=== PATIENT | female | born 1980 | race Caucasian/White ===

== ENCOUNTER 2017-11-18 07:35 | Emergency (ER) | payer OTHER ==
[~2017-11-18] VITALS: Ht 165.1 cm; Wt 127.0 kg
[~2017-11-18 07:35] MED LIST: ACYC800 PO; ALBU90OI INH; AMOX500 PO; AMOX875 PO; CLAR250 PO; DIAZ5 PO; ERYT.5TO OS; ERYT333ERA PO; FASTIN; FEXO180; GENT.3OPSA OD; GUAI600T33 PO; HYDACE10B PO; HYDACE5 PO; HYDACE5325 PO; HYDGUAL120 PO; LISI20; MEDR150I; METF500 PO; NAPR500 PO; NITR100 PO; PSEU120ER; Phentermine HCl30 MG; [UNRECOGNIZED DRUG - OTHER]
[2017-11-18 09:08] LABS: Anion Gap 11 mmol/L (6-16); Blood Urea Nitrogen 13 mg/dL (8-24); CO2, Blood 23 mmol/L (21-32); Calcium, Blood 8.5 mg/dL (8.5-10.1); Chloride, Blood 106 mmol/L (98-108); Creatinine, Blood 0.87 mg/dL (0.40-1.00); Glomerular Filtration Rate >60 (60-); Glucose, Blood 117 mg/dL (70-99); Potassium, Blood 3.6 mmol/L (3.5-5.5); Sodium, Blood 140 mmol/L (136-145); Troponin I <0.015 ng/mL (0.000-0.040)
[2017-11-18 09:17] LABS: BASOPHILS ABSOLUTE AUTO 0.06 K/mm3 (0.00-0.23); BASOPHILS PERCENT AUTO 1 % (0-2); EOSINOPHILS ABSOLUTE AUTO 0.11 K/mm3 (0.00-0.68); EOSINOPHILS PERCENT AUTO 1 % (0-6); Hematocrit 41.8 % (33.0-51.0); Hemoglobin 14.3 g/dL (11.5-16.0); IMMATURE GRAN ABSOLUTE AUTO 0.03 K/mm3 (0.00-0.10); IMMATURE GRAN PERCENT AUTO 0 % (0-1); LYMPHOCYTES ABSOLUTE AUTO 2.71 K/mm3 (0.84-5.20); LYMPHOCYTES PERCENT AUTO 27 % (21-46); MONOCYTES ABSOLUTE AUTO 0.62 K/mm3 (0.16-1.47); MONOCYTES PERCENT AUTO 6 % (4-13); Mean Corpuscular HGB 29.5 pg (26.0-34.0); Mean Corpuscular HGB Conc 34.2 g/dL (31.5-36.5); Mean Corpuscular Volume 86 fL (80-100); Mean Platelet Volume 9.4 fL (9.1-12.4); NEUTROPHILS ABSOLUTE AUTO 6.36 K/mm3 (1.96-9.15); NEUTROPHILS PERCENT AUTO 64 % (41-73); Platelet Count 312 K/mm3 (150-400); RDW Coefficient Variation 12.5 % (11.7-14.2); Red Blood Cell Count 4.84 M/mm3 (3.80-5.20); White Blood Cell Count 9.89 K/mm3 (4.00-11.30)
== END 2017-11-18 10:06 | disposition home or self-care (01) ==
LOC: ER 07:35
PROVIDERS: Emergency Medicine
DX: R07.89 Other chest pain (principal); E11.9 Type 2 diabetes mellitus without complications; Z87.891 Personal history of nicotine dependence; Z91.09 Other allergy status, other than to drugs and biological substances; Z79.84 Long term (current) use of oral hypoglycemic drugs
CPT/HCPCS: 36415; 80048; 81000; 81025; 84484; 85025; 93005; 93010; 99284

== ENCOUNTER → 2020-07-10 | Outpatient (CLI) | payer OTHER ==
[~2020-07-10] MED LIST changes: +BLOOD PRESSURE; +Depo-Prove150 MG/11 IM; +IBUP600 PO; +Norco 5-325 Ta1 EACH PO
[2020-07-10 16:45] LABS: Body Fluid Crystals NEG (NEGATIVE)
== END ==
LOC: LAB 15:59 → LAB SHORT 15:59
PROVIDERS: Family Medicine
DX: M25.462 Effusion, left knee (principal)
CPT/HCPCS: 89060

== ENCOUNTER 2021-05-19 16:40 | Inpatient (IN) | payer OTHER ==
[~2021-05-19] VITALS: Ht 165.1 cm; Wt 118.5 kg
[2021-05-19 17:31] LABS: BASOPHILS ABSOLUTE AUTO 0.02 K/mm3 (0.00-0.23); BASOPHILS PERCENT AUTO 0 % (0-2); EOSINOPHILS PERCENT AUTO 0 % (0-6); Hematocrit 42.4 % (33.0-51.0); Hemoglobin 14.6 g/dL (11.5-16.0); IMMATURE GRAN ABSOLUTE AUTO 0.04 K/mm3 (0.00-0.10); IMMATURE GRAN PERCENT AUTO 1 % (0-1); LYMPHOCYTES ABSOLUTE AUTO 1.17 K/mm3 (0.84-5.20); LYMPHOCYTES PERCENT AUTO 21 % (21-46); MONOCYTES ABSOLUTE AUTO 0.22 K/mm3 (0.16-1.47); MONOCYTES PERCENT AUTO 4 % (4-13); Mean Corpuscular HGB 29.4 pg (26.0-34.0); Mean Corpuscular HGB Conc 34.4 g/dL (31.5-36.5); Mean Corpuscular Volume 85 fL (80-100); NEUTROPHILS ABSOLUTE AUTO 4.24 K/mm3 (1.96-9.15); NEUTROPHILS PERCENT AUTO 74 % (41-73); Platelet Count 206 K/mm3 (150-400); RDW Coefficient Variation 13.2 % (11.7-14.2); RDW Standard Deviation 41.2 fL (35.1-46.3); Red Blood Cell Count 4.97 M/mm3 (3.80-5.20); White Blood Cell Count 5.69 K/mm3 (4.00-11.30)
[2021-05-19 17:41] LABS: Base Excess Venous -0.5 mmol/L; Bicarbonate Venous 23.5 mmol/L (24.0-30.0); PCO2 Venous 41.9 mmHg (38-42); pH Blood Venous 7.38 (7.34-7.37)
[2021-05-19 17:43] LABS: Albumin, Blood 2.9 g/dL (3.4-5.0); Albumin/Globulin Ratio 0.7 (0.8-1.8); Bilirubin, Total 0.7 mg/dL (0.1-1.0); Bun/Creatinine Ratio 17.8 (12.0-20.0); Calcium, Blood 8.4 mg/dL (8.5-10.1); Creatinine, Blood 1.35 mg/dL (0.40-1.00); Globulin, Blood 4.2 g/dL (2.2-4.0); Potassium, Blood 3.7 mmol/L (3.5-5.5); Total Protein, Blood 7.1 g/dL (6.4-8.2); Troponin I 0.015 ng/mL (0.000-0.040)
[2021-05-19] MEDS ORDERED: AMLO10 PT (19:04)
[2021-05-19] MEDS ORDERED: LOSARTAN POTAS100 M1 PT (19:05)
[2021-05-19 23:23] LABS: PO2 Arterial 70.8 mmHg (80-100); pH Blood Arterial 7.36 (7.35-7.45)
--- NOTE | 2021-05-20 02:33 | NUR ---
PATIENT ARRIVED VIA TRANSPORT FROM ED AROUND 0105 AM, ALERT AND ORIENTATED, ABLE TO MAKE NEEDS KNOWN, DESATURATIONS WITH EXERTION AND TALKING. CURRENTLY ON AIRVO 60L 92% SATS: 86-93% PRONED. PIV IN LAC RUNNING POTASSIUM CHLORIDE AND NS AT 100ML/HR, NEW IV INSERTED IN THE RFA RUNNING REMDESIVIR, PATIENT IS ABLE TO MOVE SIDE TO SIDE IN BED, WEAKNESS REPORTED, DIAPHORETIC, TELEMETRY NSR 80'S, CONTINENT AND HAS REPORTED NO PROBLEMS WITH URINATION, LAST BOWEL MOVEMENT 05/18/21, TAKES METFORMIN 200MG BID AT HOME, LIVES WITH HER DAUGHTER IN [place].
--- NOTE | 2021-05-20 03:43 | NUR ---
PATIENT NO LONGER ABLE TO KEEP SATS ABOVE 86% ON AIRVO CURRENTLY ON CPAP 8 AT 100%.
[2021-05-20 06:40] LABS: BASOPHILS ABSOLUTE AUTO 0.02 K/mm3 (0.00-0.23); BASOPHILS PERCENT AUTO 0 % (0-2); EOSINOPHILS PERCENT AUTO 0 % (0-6); Hematocrit 39.2 % (33.0-51.0); Hemoglobin 13.6 g/dL (11.5-16.0); IMMATURE GRAN ABSOLUTE AUTO 0.03 K/mm3 (0.00-0.10); IMMATURE GRAN PERCENT AUTO 1 % (0-1); LYMPHOCYTES ABSOLUTE AUTO 1.05 K/mm3 (0.84-5.20); LYMPHOCYTES PERCENT AUTO 23 % (21-46); MONOCYTES PERCENT AUTO 4 % (4-13); Mean Corpuscular HGB 29.7 pg (26.0-34.0); Mean Corpuscular HGB Conc 34.7 g/dL (31.5-36.5); Mean Corpuscular Volume 86 fL (80-100); Mean Platelet Volume 9.9 fL (9.1-12.4); NEUTROPHILS ABSOLUTE AUTO 3.37 K/mm3 (1.96-9.15); NEUTROPHILS PERCENT AUTO 72 % (41-73); Platelet Count 190 K/mm3 (150-400); RDW Coefficient Variation 13.1 % (11.7-14.2); RDW Standard Deviation 40.6 fL (35.1-46.3); Red Blood Cell Count 4.58 M/mm3 (3.80-5.20); White Blood Cell Count 4.67 K/mm3 (4.00-11.30)
[2021-05-20 06:59] LABS: Alanine Aminotransfer (ALT/SGP 32 U/L (12-78); Albumin, Blood 2.3 g/dL (3.4-5.0); Albumin/Globulin Ratio 0.6 (0.8-1.8); Alk Phos 48 U/L (50-136); Anion Gap 8 mmol/L (6-16); Aspartate Aminotrans (AST/SGOT 65 U/L (12-37); Bilirubin, Total 0.5 mg/dL (0.1-1.0); Blood Urea Nitrogen 27 mg/dL (8-24); Bun/Creatinine Ratio 28.4 (12.0-20.0); CO2, Blood 23 mmol/L (21-32); Calcium, Blood 8.3 mg/dL (8.5-10.1); Chloride, Blood 107 mmol/L (98-108); Creatinine, Blood 0.95 mg/dL (0.40-1.00); Globulin, Blood 4.1 g/dL (2.2-4.0); Glomerular Filtration Rate >60 (60-); Glucose, Blood 338 mg/dL (70-99); Potassium, Blood 4.3 mmol/L (3.5-5.5); Sodium, Blood 138 mmol/L (136-145); Total Protein, Blood 6.4 g/dL (6.4-8.2)
--- NOTE | 2021-05-20 07:34 | NUR ---
PT IS AWAKE AND ALERT. DENIES PAIN. PT REQUESTING TO RETURN TO SUPINE POSITION HER BACK IS UNCOMFORTABLE. PT GIVEN PARTIAL BATH AND ASSISTED TO SUPINE POSITION WITH HOB ELEVATED. LUNGS DIMINISHED THOUGHT OUT. RR 32-40. CPAP 12-FIO2 100%-SAT CURRENTLY 93% PT NPO DUE TO RESPIRATIORY DISTRESS. DID NOT GIVE PO NORVASC-BP 163/101. ECG SHOWS SR WITH RATE 8O'S. PT REFUSED TO REMOVE HER UNDERWEAR AND IS REFUSING ALE CARE AT THIS TIME.
--- NOTE | 2021-05-20 09:40 | NUR ---
PT RESTING QUIETLY ON CPAP 12-FIO2 100%. PT REPOSITIONED HERSELF TO THE RIGHT SIDE WITH HOB ELEVATED. SATS>90% RR 30'S. DR. DE LA FUENTE CONTACTED AND UPDATED THAT PT IS NPO DUE TO RESPIRATORY DISTRESS. PULMONOLOGY CONSULT REQUESTED. DR. DE LA FUENTE TO CONTACT DR. SALCEDO.
--- NOTE | 2021-05-20 11:00 | NUR ---
Upon receiving an admit referral for spiritual care, I visit patient. Patient immediately tells me that she is scared about having to go on a ventilator because she feels she will not survive. She talks about her 17yr old daughter, Lizbet, at home alone and how worried she is for her. She explains that an aunt is checking in on her but the patient is her sole parental unit at this time. She says that she has a solid family friend support system and that she leans heavily on her [employer] horace at times like this. I reinforce helpful attitudes and practices, normalize her experience and provide therapeutic listening and prayer. Patient responds well and shows signs of increased peace. I will continue to remain available to patient and family.
--- NOTE | 2021-05-20 11:17 | NUR ---
PT ASSISTED OOB TO BSC. PT VERY DYSPNEIC AND TACHYPNEIC. SATS DOWN TO 79% PT VOIDED 900 CC OF DARK, CRISTINA, MALODOROUS URINE. ALE CARE COMPLETED AND ASSISTED BACK TO BED. SATS RETURNED TO >90% AFTER SEVERAL MINUTES REST.
--- NOTE | 2021-05-20 16:00 | NUR ---
ASSISTED PT OOB TO CHAIR-TOLERATED WELL-SATS VERY BRIEFLY DIPPED TO 89% BUT ONCE IN CHAIR, SATS 94%.
--- NOTE | 2021-05-20 16:45 | NUR ---
PT PLACE ON 55 LITERS/FIO2 100% ON HIGH FLOW AND SATS>90%
--- NOTE | 2021-05-20 17:07 | NUR ---
PT ABLE TO TAKE VITAMIN C AND APRESOLINE WITH A SIP OF WATER WITHOUT DIFFICULTY. MAINTAINS SATS>90% ON 55 LITERS/FIO2 100%.
--- NOTE | 2021-05-20 18:20 | NUR ---
PT UTILIZED CALL LIGHT TO REQUEST HELP GETTING UP TO BSC AND THEN BACK TO BED. SATS TO 78% AND RR 44 WITH EXERTION PT WITH CIRCUMORAL CYANOSIS. PT APPEARS ANXIOUS AND TEARFUL. PT PLACED BACK ON CPAP 12 WITH FIO2 100% AND BED IN HIGH MILLARD POSITION. DR. SALCEDO UPDATED. PT STARTED ON PRECEDEX DRIP @ 0.4 MCG/KG/MIN.
[2021-05-21 03:50] LABS: BASOPHILS ABSOLUTE AUTO 0.01 K/mm3 (0.00-0.23); BASOPHILS PERCENT AUTO 0 % (0-2); EOSINOPHILS PERCENT AUTO 0 % (0-6); Hematocrit 38.8 % (33.0-51.0); IMMATURE GRAN ABSOLUTE AUTO 0.05 K/mm3 (0.00-0.10); IMMATURE GRAN PERCENT AUTO 1 % (0-1); LYMPHOCYTES ABSOLUTE AUTO 1.13 K/mm3 (0.84-5.20); LYMPHOCYTES PERCENT AUTO 14 % (21-46); MONOCYTES ABSOLUTE AUTO 0.33 K/mm3 (0.16-1.47); MONOCYTES PERCENT AUTO 4 % (4-13); Mean Corpuscular HGB 29.5 pg (26.0-34.0); Mean Corpuscular HGB Conc 33.5 g/dL (31.5-36.5); Mean Corpuscular Volume 88 fL (80-100); Mean Platelet Volume 9.9 fL (9.1-12.4); NEUTROPHILS PERCENT AUTO 82 % (41-73); Platelet Count 234 K/mm3 (150-400); RDW Coefficient Variation 13.1 % (11.7-14.2); RDW Standard Deviation 42.5 fL (35.1-46.3); White Blood Cell Count 8.32 K/mm3 (4.00-11.30)
[2021-05-21 04:22] LABS: Alanine Aminotransfer (ALT/SGP 28 U/L (12-78); Albumin, Blood 2.2 g/dL (3.4-5.0); Albumin/Globulin Ratio 0.6 (0.8-1.8); Alk Phos 48 U/L (50-136); Anion Gap 5 mmol/L (6-16); Aspartate Aminotrans (AST/SGOT 46 U/L (12-37); Bilirubin, Total 0.4 mg/dL (0.1-1.0); Blood Urea Nitrogen 29 mg/dL (8-24); Bun/Creatinine Ratio 32.6 (12.0-20.0); CO2, Blood 24 mmol/L (21-32); Calcium, Blood 8.6 mg/dL (8.5-10.1); Chloride, Blood 112 mmol/L (98-108); Creatinine, Blood 0.89 mg/dL (0.40-1.00); Globulin, Blood 3.8 g/dL (2.2-4.0); Glomerular Filtration Rate >60 (60-); Glucose, Blood 345 mg/dL (70-99); Magnesium, Blood 2.8 mg/dL (1.6-2.4); Phosphorus, Blood 3.4 mg/dL (2.5-4.9); Potassium, Blood 5.1 mmol/L (3.5-5.5); Sodium, Blood 141 mmol/L (136-145); Thyroid Stimulating Hormone 0.616 uIU/mL (0.360-4.800)
--- NOTE | 2021-05-21 05:39 | NUR ---
SHIFT SUMMARY PATIENT HAS SLEPT WELL THRU NIGHT. NO C/O PAIN, SHORTNESS OF BREATH, NOR DIFFICULTY BREATHING. OXYGEN SATURATION IMPROVED WITH PRONING, WAS ABLE TO DECREASE FIO2 TO 80% PER R.T. VSS. WILL CONTINUE TO MONITOR.
--- NOTE | 2021-05-21 07:50 | NUR ---
PT AWAKE, ALERT, AND ORIENTED ON PRECEDEX @ 0.6 MCG/KG/MIN. LUNGS DIMINISHED THROUGH OUT. RR 44-48 AND SPO2 88% ON CPAP 15 AND FIO2 80%-TITRATED FIO2 UP TO 100% TO KEEP SATS>90% FREQUENT HARSH, DRY, NONPRODUCTIVE COUGH. NPO DUE TO RESPIRATORY DISTRESS. FULL FACE MASK PLACED PER PT REQUEST. PT SOMEWHAT ANXIOUS-TITRATED PRECEDEX TO 0.7 MCG/KG/MIN. #16 FR LUCAS INSERTED-U/A SENT PER LUCAS INSERTION PROTOCOL. PT SKIN IS PALE-CHEEKS ARE FLUSHED & SKIN IS DIAPHORETIC. ECG SHOWS SB TO SR. PT HYPERTENSIVE-SEE FLOWSHEET. REQUESTED PLACEMENT OF EXTENDED DWELL CATHETER PER ICU CHARGE.
[2021-05-21 08:05] LABS: Source, Urine Catheter
[2021-05-21 08:13] LABS: Bilirubin, Urine Neg (Neg); Blood, Urine 1+ (Neg); Glucose Qualitative, Urine 4+ (Neg); Ketones, Urine 2+ (Neg); Leukocyte Esterase, Urine Neg (Neg); Nitrite, Urine Neg (Neg); Protein, Urine 1+ (Neg); Urobilinogen, Urine NORM (Normal)
[2021-05-21 08:21] LABS: Appearance, Urine Hazy (Clear); Color, Urine Yellow (P-Yellow)
[2021-05-21 08:25] LABS: Bacteria Many /hpf; Squamous Epithelial Cells Rare /hpf (Few)
[2021-05-21 08:26] LABS: Granular Casts 0-2 /lpf (0)
--- NOTE | 2021-05-21 10:45 | NUR ---
PT TRANSFERED TO ICU 10 VIA BED FOR CLOSER MONITORING. RR 40'S AND SATS 88-90% ON CPAP OF 15 WITH FIO2 100%. PT GAVE VERBAL CONSENT FOR PICC LINE PLACEMENT. PT NEXT OF KIN "SAAD" MADE AWARE OF THE TRANSFER.
--- NOTE | 2021-05-21 12:45 | NUR ---
DR. SALCEDO MADE AWARE THAT PT RR 40-50'S AND THAT SATS 88-90% ON CPAP 15/FIO2 100%. VERBAL ORDER GIVEN TO CHANGE TO BIPAP RATE 10, FIO2 100% RT ADALBERTO MADE AWARE. PT POSITIONED TO COMFORT ON RIGHT SIDE-SATS 94% DR. SALCEDO AWARE THART PT IS NPO DUE TO RESPIRATORY DISTRESS. ALSO, DR. SALCEDO AWARE THAT CBG'S 300'S-NEW ORDER FOR INTERMEDIATE SLIDING SCALE REGULAR INSULIN EVERY 6 HOURS.
--- NOTE | 2021-05-21 15:15 | NUR ---
PT RESTS QUIETLY WHEN NOT DISTURBED. AWAKENS TO VOICE AND IS A&OX4. PT DENIES PAIN. RR CONTINUES IN THE 40'S. LUNGS DIMINISHED THROUGH OUT. OCCASIONAL TO FREQUENT HARSH, DRY COUGH. SATS 90-94% ON BIPAP /17-FIO2 100%. PT REMAINS NPO. ORAL CARE COMPLETED, PT GIVEN BED BATH AND PARTIAL LINEN CHANGE COMPLETED-TOLERATED WELL. PT REPOSITIONED TO COMFORT ON HER RIGHT SIDE.
--- NOTE | 2021-05-21 15:57 | NUR ---
Patient is lying in bed and alert. Patient immediately tells me that she is much less anxious from my last visit when patient was in PCU. She continues to talk about her horace being her inspiration, strength and hope. I provide recitation of scripture and prayer. Patient responds well and shows signs of being further encouraged in her horace. I will continue to remain available to patient and family.
--- NOTE | 2021-05-21 17:00 | NUR ---
PT APPEARS ANXIOUS. ATTEMPTING TO ADJUST THE BIPAP MASK AND FIDGETING IN BED. RR 48 AND SATS DOWN TO 88-90% ON BIPAP 22/17 AND FIO2 100%. TITRATED PRECEDEX UP TO O.9 MCG/KG/MIN. PT BOOSTED IN BED UTILIZING CEILING LIFT. BED PLACED IN CHAIR POSITION. ASSISTED WITH ADJUSTING THE BIPAP MASK FOR SEVERAL MINUTES AND THEN PT STATES "THAT'S GOOD I THINK." UPPER EXTREMITIES ELEVATED ON PILLOWS PER PT REQUEST. CBG 422 COVERED PER MEDIUM SLIDING SCALE. WILL NOTIFY DR. SALCEDO THAT CBG>350.
--- NOTE | 2021-05-21 17:59 | NUR ---
PT INCREASED TO HIGH SLIDING SCALE PER DR. SALCEDO FOR CBG 422. ADDITIONAL 5 UNITS REGULAR GIVEN-SEE EMAR.
--- NOTE | 2021-05-21 18:16 | NUR ---
HR TO 30'S. BP STABLE-DECREASED PRECEDEX DRIP 0.6 MCG/KG/MIN. PT APPEARS TO BE SLEEPING, YET RR STILL IN 40'S. SATS>90% ON BIPAP-FIO2 STILL @ 100%.
--- NOTE | 2021-05-21 20:05 | NUR ---
SPOKE WITH DR. QUEEN: PATIENTS SBP 160S-170S WITH HR KIMBERLEY D/T PRECEDEX GTT. UNABLE TO GIVE ORAL HTN MEDICATIONS D/T STRICT NPO FOR POSSIBLE NEED OF INTUBATION. HTN MAY ALSO BE DUE TO ANXIETY BUT UNABLE TO INCREASE PRECEDEX D/T HR SENSITIVITY (PER DAYSHIFT REPORT, HR DIPPED TO HIGH 30S WHEN PRECEDEX WAS INCREASED TO 0.9 SO PRECEDEX HAD TO BE DECREASED BACK TO 0.6). DR. QUEEN GAVE TELEPHONE ORDER FOR ATIVAN PRN AND HYDRALAZINE PRN. SEE ORDERS.
--- NOTE | 2021-05-21 21:38 | NUR ---
FAMILY UPDATED: SAAD
[2021-05-22 04:52] LABS: BASOPHILS ABSOLUTE AUTO 0.02 K/mm3 (0.00-0.23); BASOPHILS PERCENT AUTO 0 % (0-2); EOSINOPHILS PERCENT AUTO 0 % (0-6); Hematocrit 37.9 % (33.0-51.0); Hemoglobin 12.5 g/dL (11.5-16.0); IMMATURE GRAN ABSOLUTE AUTO 0.08 K/mm3 (0.00-0.10); IMMATURE GRAN PERCENT AUTO 1 % (0-1); LYMPHOCYTES ABSOLUTE AUTO 1.01 K/mm3 (0.84-5.20); LYMPHOCYTES PERCENT AUTO 11 % (21-46); MONOCYTES ABSOLUTE AUTO 0.46 K/mm3 (0.16-1.47); MONOCYTES PERCENT AUTO 5 % (4-13); Mean Corpuscular HGB 29.4 pg (26.0-34.0); Mean Corpuscular Volume 89 fL (80-100); Mean Platelet Volume 10.2 fL (9.1-12.4); NEUTROPHILS ABSOLUTE AUTO 7.27 K/mm3 (1.96-9.15); NEUTROPHILS PERCENT AUTO 82 % (41-73); NRBC ABSOLUTE 0.02 K/mm3 (0.00-0.02); NRBC Auto 0.2 /100 WBC (0.0-0.2); Platelet Count 288 K/mm3 (150-400); RDW Coefficient Variation 13.2 % (11.7-14.2); RDW Standard Deviation 43.3 fL (35.1-46.3); Red Blood Cell Count 4.25 M/mm3 (3.80-5.20); White Blood Cell Count 8.84 K/mm3 (4.00-11.30)
--- NOTE | 2021-05-22 04:56 | NUR ---
END OF SHIFT SUMMARY: RESPIRATORY RATE INITIALLY IN MID 40S. PRN ATIVAN ORDERED AND GIVEN Q4. DECREASE RR. NOW RR IN LOW 30S. PATIENT MORE COMFORTABLE AND VERBALIZES LESS ANXIETY. PRECEDEX GTT REMAINS AT 0.6 WITH HR KIMBERLEY IN 50S. BIPAP SETTING REMIAN THE SAME WITH 22/17 AND 90% FIO2. PATIENT DID NOT SELF PRONE OVERNIGHTS, RN OFFERED ASSISTANCE, PATIENT REFUSED.
[2021-05-22 05:19] LABS: Alanine Aminotransfer (ALT/SGP 26 U/L (12-78); Albumin, Blood 2.2 g/dL (3.4-5.0); Albumin/Globulin Ratio 0.6 (0.8-1.8); Alk Phos 54 U/L (50-136); Anion Gap 8 mmol/L (6-16); Aspartate Aminotrans (AST/SGOT 32 U/L (12-37); Bilirubin, Total 0.4 mg/dL (0.1-1.0); Blood Urea Nitrogen 34 mg/dL (8-24); Bun/Creatinine Ratio 42.3 (12.0-20.0); CO2, Blood 23 mmol/L (21-32); Calcium, Blood 8.5 mg/dL (8.5-10.1); Chloride, Blood 114 mmol/L (98-108); Globulin, Blood 3.9 g/dL (2.2-4.0); Glomerular Filtration Rate >60 (60-); Glucose, Blood 327 mg/dL (70-99); Magnesium, Blood 2.9 mg/dL (1.6-2.4); Phosphorus, Blood 4.2 mg/dL (2.5-4.9); Potassium, Blood 4.4 mmol/L (3.5-5.5); Sodium, Blood 145 mmol/L (136-145); Total Protein, Blood 6.1 g/dL (6.4-8.2); Troponin I <0.015 ng/mL (0.000-0.040)
--- NOTE | 2021-05-22 10:58 | NUR ---
PT WAS BREATHING IN THE 60S, SITTING WITH SATS AT SP02 87-90. THINKING ABOUT INTUBATING BUT AFTER UPPING FIO2 TO 100% PT IS BREATHING MID 30S AND LOOKS SOMEWHAT BETTER SO WE ARE HOLDING OFF RIGHT NOW.
--- NOTE | 2021-05-22 14:14 | NUR ---
USING THIS RSI KIT UNDER DR. HANLEY'S ORDERS STARTING AT 1247. ANESTHESIA WAS EVENTUALLY CALLED AND A #7.5 ETT 23 AT THE LIPS WAS PLACED AT 1313. OG ALSO PLACED AND PUT ON LIS. PT VSS NOW STABLE ON PEEP 18 AND FIO2 100%. WILL LET REST COMFORTABLY AND RECOVER FROM PROCEDURE BEFORE REPOSITIONING.
--- NOTE | 2021-05-22 17:46 | NUR ---
AT 1630 THIS RN COULD NOT GET ANY TO4 WITH THE VOLTAGE AT 10. BIS WAS 38. PRECEDEX WAS SHUT OFF AND PROPOFOL TURNED DOWN TO 60.
--- NOTE | 2021-05-22 23:00 | NUR ---
AUNT SAAD UPDATED VIA TELEPHONE
[2021-05-23 04:26] LABS: BASOPHILS ABSOLUTE AUTO 0.01 K/mm3 (0.00-0.23); BASOPHILS PERCENT AUTO 0 % (0-2); EOSINOPHILS PERCENT AUTO 0 % (0-6); Hematocrit 35.6 % (33.0-51.0); Hemoglobin 11.7 g/dL (11.5-16.0); IMMATURE GRAN ABSOLUTE AUTO 0.16 K/mm3 (0.00-0.10); IMMATURE GRAN PERCENT AUTO 2 % (0-1); LYMPHOCYTES ABSOLUTE AUTO 1.02 K/mm3 (0.84-5.20); LYMPHOCYTES PERCENT AUTO 11 % (21-46); MONOCYTES PERCENT AUTO 4 % (4-13); Mean Corpuscular HGB 30.2 pg (26.0-34.0); Mean Corpuscular HGB Conc 32.9 g/dL (31.5-36.5); Mean Corpuscular Volume 92 fL (80-100); Mean Platelet Volume 10.2 fL (9.1-12.4); NEUTROPHILS ABSOLUTE AUTO 7.49 K/mm3 (1.96-9.15); NEUTROPHILS PERCENT AUTO 83 % (41-73); Platelet Count 305 K/mm3 (150-400); RDW Coefficient Variation 13.9 % (11.7-14.2); RDW Standard Deviation 47.3 fL (35.1-46.3); Red Blood Cell Count 3.87 M/mm3 (3.80-5.20); White Blood Cell Count 9.08 K/mm3 (4.00-11.30)
[2021-05-23 05:13] LABS: Alanine Aminotransfer (ALT/SGP 37 U/L (12-78); Albumin/Globulin Ratio 0.6 (0.8-1.8); Alk Phos 42 U/L (50-136); Anion Gap 7 mmol/L (6-16); Aspartate Aminotrans (AST/SGOT 41 U/L (12-37); Bilirubin, Total 0.7 mg/dL (0.1-1.0); Blood Urea Nitrogen 35 mg/dL (8-24); Bun/Creatinine Ratio 45.1 (12.0-20.0); CO2, Blood 24 mmol/L (21-32); Calcium, Blood 7.9 mg/dL (8.5-10.1); Chloride, Blood 112 mmol/L (98-108); Creatinine, Blood 0.78 mg/dL (0.40-1.00); Globulin, Blood 3.5 g/dL (2.2-4.0); Glomerular Filtration Rate >60 (60-); Glucose, Blood 298 mg/dL (70-99); Potassium, Blood 4.4 mmol/L (3.5-5.5); Sodium, Blood 143 mmol/L (136-145); Total Protein, Blood 5.5 g/dL (6.4-8.2)
--- NOTE | 2021-05-23 06:16 | NUR ---
END OF SHIFT SUMMARY: TOF 0/4 ON 10 - DR. HANLEY NOTIFIED DURING DAYSHIFT NIMBEX AT 2, PROPOFOL AT 60, FENATNYL AT 100 (NO CHANGES) - BIS IN 30S-40S VITAL SIGNS STABLE NO BM, NO TUBE FEEDS - NO RESIDUALS URINE DARK YELLOW AND CLOUDY ETT AT 25 AT LIP - RT NOTIFIED - NO CHANGES MADE - LUNG SOUNDS CLEAR BILAT, RR AT 24 - NOT BREATHING OVER VENT, FIO2 DOWN TO 70%
--- NOTE | 2021-05-23 13:02 | NUR ---
AT NOON PT'S HR WAS A SINUS TACH AT 120S AND HER BIS WAS UP AND DOWN FROM 40S TO MID 60S. PROPOFOL IS ALREADY AT 60, FENTANYL AT 100. UPPED HER PRN ATIVAN ORDERS AND GIVEN 3MG.
--- NOTE | 2021-05-23 18:30 | NUR ---
PT STILL SEDATED, PARALYZED AND RESTING COMFORTABLY ON THE VENTILATOR. NO CHANGES TO SEDATION. PT STILL INTUBATED WITH A #7.5 ETT AT 24 AT THE LIP. NOW SUPINE, NO MORE PRONING DUE TO HIGH-RISK AIRWAY. CURRENT VENT SETTING ARE PEEP 14 AND 70% OG TO LIS LUCAS IN PLACE AND DRAINING CRISTINA URINE AUNT SAAD AT BEDSIDE DURING VISITNG HOURS.
--- NOTE | 2021-05-23 21:55 | NUR ---
FAMILY UPDATED: SAAD - AUNT
--- NOTE | 2021-05-23 23:12 | NUR ---
DR. ELAINE NOTIFIED OF NEW FINDING ON TELEMETRY STRIP: INVERTED T WAVE. ORDER PLACED FOR PRN EKGS AND TROP WITH A.M. LABS.
[2021-05-24 04:13] LABS: BASOPHILS ABSOLUTE AUTO 0.01 K/mm3 (0.00-0.23); BASOPHILS PERCENT AUTO 0 % (0-2); EOSINOPHILS PERCENT AUTO 0 % (0-6); Hematocrit 35.4 % (33.0-51.0); Hemoglobin 11.2 g/dL (11.5-16.0); LYMPHOCYTES PERCENT AUTO 10 % (21-46); MONOCYTES PERCENT AUTO 6 % (4-13); Mean Corpuscular HGB 29.4 pg (26.0-34.0); Mean Corpuscular HGB Conc 31.6 g/dL (31.5-36.5); Mean Corpuscular Volume 93 fL (80-100); Mean Platelet Volume 9.9 fL (9.1-12.4); NEUTROPHILS PERCENT AUTO 82 % (41-73); Platelet Count 335 K/mm3 (150-400); RDW Coefficient Variation 13.5 % (11.7-14.2); RDW Standard Deviation 46.5 fL (35.1-46.3); Red Blood Cell Count 3.81 M/mm3 (3.80-5.20); White Blood Cell Count 8.77 K/mm3 (4.00-11.30)
[2021-05-24 04:14] LABS: IMMATURE GRAN ABSOLUTE AUTO 0.22 K/mm3 (0.00-0.10); IMMATURE GRAN PERCENT AUTO 3 % (0-1); LYMPHOCYTES ABSOLUTE AUTO 0.87 K/mm3 (0.84-5.20); MONOCYTES ABSOLUTE AUTO 0.51 K/mm3 (0.16-1.47); NEUTROPHILS ABSOLUTE AUTO 7.16 K/mm3 (1.96-9.15)
[2021-05-24 04:41] LABS: Anion Gap 5 mmol/L (6-16); Blood Urea Nitrogen 34 mg/dL (8-24); Bun/Creatinine Ratio 45.5 (12.0-20.0); CO2, Blood 27 mmol/L (21-32); Calcium, Blood 8.6 mg/dL (8.5-10.1); Chloride, Blood 116 mmol/L (98-108); Creatinine, Blood 0.75 mg/dL (0.40-1.00); Glomerular Filtration Rate >60 (60-); Glucose, Blood 308 mg/dL (70-99); Phosphorus, Blood 2.8 mg/dL (2.5-4.9); Potassium, Blood 4.4 mmol/L (3.5-5.5); Sodium, Blood 148 mmol/L (136-145); Troponin I 0.023 ng/mL (0.000-0.040)
--- NOTE | 2021-05-24 06:46 | NUR ---
END OF SHIFT SUMMARY NOTE: SINUS RHYTHM WITH NEW T WAVE INVERSION. DR. ELAINE NOTIFIED. PRN EKG TAKEN. TROPONING THIS A.M. NEGATIVE AT 0.023. CXR NOT TAKEN THIS A.M. D/T PRONE POSITIONING. ELECTROLYTES DO NOT NEED REPLACED PER E-LYTE PROTOCOL. NO CHANGES MADE TO GTTS. VENT SETTINGS ADJUSTED PER RT: CURRENTLY RATE 24, Vt 350, 65%, PEEP 14. NOT BREATHING OVER VENT - PARALYZED WTIH 0/4 TOF ( PREVIOUSLY NOTIFIED). NO ISSUES OVERNIGHT. ETT PLACEMENT 23 AT LIP BY END OF SHIFT.
--- NOTE | 2021-05-24 13:36 | NUR ---
WHEN SUPINING PATIENT AT 1300 PT DEVELOPED A MASSIVE AIR LEAK AROUND ETT. STILL POSITIONED WELL @25 @THE LIP. OXYGENATING WELL. RTT ADALBERTO CALLED TO BEDSIDE AND DR. HANLEY WELL. ADALBERTO DEFLATED CUFF AND TOOK OUT THE BITE BLOCK IT WAS KINKING THE AIR CUFF. REPOSITIONED TUBE AND REINFLATED AIR CUFF. NIOSE CEASED, TV GOOD AGAIN ON VENT AND PT STILL OXYGENATING WELL. FOR THIS REASON, NO MORE PRONING. WILL START COMING DOWN ON NIMBEX ONCE VISITOR LEAVES.
--- NOTE | 2021-05-24 17:59 | NUR ---
AT END OF SHIFT PT WAS TITRATED OFF OF NIMBEX. ON PROPOFOL OF 60, AND 100 FENT. CURRENTLY TOLERATING. BIS STILL ATTACHED AND IN THE MID 60S. RESTRAINTS APPLIED VENT SETTING ARE PEEP 12 AND FIO2 OF 90% LUCAS IN PLACE AND DRAINING WELL. CLEAR YELLOW URINE. AUNT AMOS UPDATED
[2021-05-25 04:40] LABS: BASOPHILS ABSOLUTE AUTO 0.03 K/mm3 (0.00-0.23); BASOPHILS PERCENT AUTO 0 % (0-2); EOSINOPHILS PERCENT AUTO 0 % (0-6); Hematocrit 36.8 % (33.0-51.0); Hemoglobin 11.6 g/dL (11.5-16.0); Mean Corpuscular HGB 29.3 pg (26.0-34.0); Mean Corpuscular HGB Conc 31.5 g/dL (31.5-36.5); Mean Corpuscular Volume 93 fL (80-100); Mean Platelet Volume 10.4 fL (9.1-12.4); Platelet Count 373 K/mm3 (150-400); RDW Coefficient Variation 13.4 % (11.7-14.2); RDW Standard Deviation 45.7 fL (35.1-46.3); Red Blood Cell Count 3.96 M/mm3 (3.80-5.20); White Blood Cell Count 8.79 K/mm3 (4.00-11.30)
[2021-05-25 04:41] LABS: IMMATURE GRAN ABSOLUTE AUTO 0.32 K/mm3 (0.00-0.10); IMMATURE GRAN PERCENT AUTO 4 % (0-1); LYMPHOCYTES ABSOLUTE AUTO 0.74 K/mm3 (0.84-5.20); LYMPHOCYTES PERCENT AUTO 8 % (21-46); MONOCYTES ABSOLUTE AUTO 0.32 K/mm3 (0.16-1.47); MONOCYTES PERCENT AUTO 4 % (4-13); NEUTROPHILS ABSOLUTE AUTO 7.38 K/mm3 (1.96-9.15); NEUTROPHILS PERCENT AUTO 84 % (41-73)
[2021-05-25 05:07] LABS: Anion Gap 8 mmol/L (6-16); Blood Urea Nitrogen 39 mg/dL (8-24); Bun/Creatinine Ratio 49.2 (12.0-20.0); CO2, Blood 25 mmol/L (21-32); Calcium, Blood 8.4 mg/dL (8.5-10.1); Chloride, Blood 113 mmol/L (98-108); Creatinine, Blood 0.79 mg/dL (0.40-1.00); Glomerular Filtration Rate >60 (60-); Glucose, Blood 345 mg/dL (70-99); Potassium, Blood 4.7 mmol/L (3.5-5.5); Sodium, Blood 146 mmol/L (136-145)
--- NOTE | 2021-05-25 06:43 | NUR ---
END OF SHIFT SUMMARY: - SEE PREVIOUS NOTE ABOUT DESATURATION AT BEGINNING OF SHIFT AND DR. HANLEY AT BEDSIDE. -- VENT SETTINGS REMAIN THE SAME SINCE THOSE CHANGS: 24, 250, 100%, 16. PATIENT DOES NOT BREATH OVER VENT MOST OF THE NIGHT (RR 24) EXCEPT OCCASIONAL COUGH. -NBP STABLE. HR SINUS KIMBERLEY IN 50S AFTER CHANGES TO PROPOFOL. - GIVEN ATIVAN PRN TO ASSIST WITH TURNS. - PATIENT DESATS QUICKLY WITH TURNS - PATIENT'S BIS WILL BE IN 30S PRE TURN AND THEN JUMP INTO THE 70S WITH TURNING AND DESATING DOWN TO LOW 80S. ATIVAN HELPS PREVEN THIS. -FENTANYL REMAINS AT 100 AND PROPOFOL AT 70. NIMBEX REMAINS OFF ALL SHIFT WITH NO RETURN OF REFLEXES EXCEPT FOR COUGH. (NO CORNEAL, BLINK, GAG, OR MOVEMENT TO PAINFUL STIMULI)
--- NOTE | 2021-05-25 09:16 | NUR ---
ASSUMING CARE OF PT. RESP: ON VENT- A/C 24/350/16/100% SATS-89-92% LOC- SEDATED WITH PROPOFOL, FENTANYL, PRN ATIVAN. BIS 30'S +GAG + COUGH GI- HYPOACITVE BOWELS SOUNDS- BOWEL REGIMEN GIVEN TUBE FEEDING-10ML/HR - LUCAS TO GRAVITY- CRISTINA CLEAR URINE NOTED SKIN- PALE, SKIN INTACT RESTRAINTS ON FOR SAFETY- RISK FOR SELF EXTUBATION- PT WAS A DIFFICULT INTUBATION
[2021-05-25 10:56] LABS: Base Excess Venous 1.5 mmol/L; Bicarbonate Venous 25.3 mmol/L (24.0-30.0); PCO2 Venous 47.6 mmHg (38-42); PO2 Venous 154 mmHg (38-42); pH Blood Venous 7.36 (7.34-7.37)
--- NOTE | 2021-05-25 20:54 | NUR ---
ASSUME CARE PT PRONED, ON VENT AND SEDATION. PICC LINE FLUSHES AND DRAWS. ORAL CARE AND MEDS PASSED. PT TURNED. CATHETER CARE AND ORAL CARE COMPLETE
[2021-05-26 03:45] LABS: Anion Gap 5 mmol/L (6-16); Blood Urea Nitrogen 39 mg/dL (8-24); Bun/Creatinine Ratio 57.9 (12.0-20.0); CO2, Blood 28 mmol/L (21-32); Calcium, Blood 7.9 mg/dL (8.5-10.1); Chloride, Blood 111 mmol/L (98-108); Creatinine, Blood 0.67 mg/dL (0.40-1.00); Glomerular Filtration Rate >60 (60-); Glucose, Blood 369 mg/dL (70-99); Potassium, Blood 4.7 mmol/L (3.5-5.5); Sodium, Blood 144 mmol/L (136-145)
--- NOTE | 2021-05-26 05:59 | NUR ---
SUMMARY NEURO- PT SEDATED, COUGH/GAG REFLEX INTACT. PT GRIMACES TO ORAL CARE AND TRIES TO PUSH BITE BLOCK OUT OF TEETH. PERRL 3MM. NO RESPONSE IN EXTREMITIES TO PAIN CV- WNL RESP- ON VENT RT DECREASED FIO2. PT SPO2 >95%. FAN SECRETIONS WHEN SUCTIONED. DIMINISHED LUNG SOUNDS. GI-TF AT GOAL. ACTIVE BS. NO BM - LASIX GIVEN. 1325ML UOP, CRISTINA AND DARK. CLEAR. SKIN INTACT. PRONE OVER NIGHT. IV AND PICC FLUSH WELL.
--- NOTE | 2021-05-26 07:30 | NUR ---
ASSUMED CARE. PT SEDATED ON VENTILATOR. CURRENTLY PRONED. VENT SETTINGS: AC-25, TV-335, PEEP-16, FI02-85%. CURRENT BIOX 96%. BILATERAL SOFT WRIST RESTRAINTS IN PLACE PT IS HIGH RISK FOR SELF EXTUBATION.
--- NOTE | 2021-05-26 18:34 | NUR ---
DR SALCEDO NOTIFIED OF PTS HYPOTENSION FOLLOWING INCREASE IN PEEP TO 20. NS 500CC BOLUS INITIATED. PT REMAINS ON PROPOFOL AT 65MCG/KG/MIN AND FENTANYL AT 100MCG/HR. CURRENT VENT SETTINGS: AC-25, TV-335, FI02-70, PEEP-20.
--- NOTE | 2021-05-26 20:27 | NUR ---
DR. SALCEDO NOTIFIED OF SBP IN 80S S/P 500ML NS INFUSION. --> 1L INFUSION ORDER DR. SALCEDO NOTIFIED OF NO RECENT BM --> PRN MILK OF MAG ORDER
--- NOTE | 2021-05-26 21:29 | NUR ---
FAMILY UPDATE TO AUNT SAAD
[2021-05-27 04:34] LABS: BASOPHILS ABSOLUTE AUTO 0.01 K/mm3 (0.00-0.23); BASOPHILS PERCENT AUTO 0 % (0-2); EOSINOPHILS ABSOLUTE AUTO 0.01 K/mm3 (0.00-0.68); EOSINOPHILS PERCENT AUTO 0 % (0-6); Hematocrit 34.2 % (33.0-51.0); IMMATURE GRAN ABSOLUTE AUTO 0.45 K/mm3 (0.00-0.10); IMMATURE GRAN PERCENT AUTO 5 % (0-1); LYMPHOCYTES ABSOLUTE AUTO 0.85 K/mm3 (0.84-5.20); LYMPHOCYTES PERCENT AUTO 10 % (21-46); MONOCYTES ABSOLUTE AUTO 0.44 K/mm3 (0.16-1.47); MONOCYTES PERCENT AUTO 5 % (4-13); Mean Corpuscular HGB 29.4 pg (26.0-34.0); Mean Corpuscular HGB Conc 32.2 g/dL (31.5-36.5); Mean Corpuscular Volume 91 fL (80-100); Mean Platelet Volume 10.3 fL (9.1-12.4); NEUTROPHILS ABSOLUTE AUTO 7.22 K/mm3 (1.96-9.15); NEUTROPHILS PERCENT AUTO 80 % (41-73); Platelet Count 381 K/mm3 (150-400); RDW Coefficient Variation 13.2 % (11.7-14.2); RDW Standard Deviation 43.8 fL (35.1-46.3); Red Blood Cell Count 3.74 M/mm3 (3.80-5.20); White Blood Cell Count 8.98 K/mm3 (4.00-11.30)
[2021-05-27 04:56] LABS: Anion Gap 5 mmol/L (6-16); Blood Urea Nitrogen 36 mg/dL (8-24); Bun/Creatinine Ratio 54.4 (12.0-20.0); CO2, Blood 29 mmol/L (21-32); Calcium, Blood 8.1 mg/dL (8.5-10.1); Chloride, Blood 111 mmol/L (98-108); Creatinine, Blood 0.66 mg/dL (0.40-1.00); Glomerular Filtration Rate >60 (60-); Glucose, Blood 303 mg/dL (70-99); Magnesium, Blood 2.9 mg/dL (1.6-2.4); Phosphorus, Blood 3.5 mg/dL (2.5-4.9); Potassium, Blood 4.7 mmol/L (3.5-5.5); Sodium, Blood 145 mmol/L (136-145); Triglycerides 456 mg/dL (30-160)
--- NOTE | 2021-05-27 06:38 | NUR ---
END OF SHIFT SUMMARY: -HIGH BLOOD SUGARS STILL -TIGLYCERIDES ELEVATED WITH MORNING LABS: PROPOFOL DECREASED OVERNIGHT FROM 65 TO 35MCG/KG/MIN (PATIENT ATTEMPTS TO OPEN EYES TO VERBAL STIMULI, BUT DOES NOT WITHDRAW FROM PAIN ON ANY EXTREMITY. COUGH, GAG, CORNEAL, AND BLINK REFLEXES ARE PRESENT.) -FENTANYL REMAINS AT 100MCG/HR -1L NS BOLUS GIVEN A BEGINNING OF SHIFT SHORTLY AFTER DAYSHIFT'S 500ML NS BOLUS COMPLETED DUE TO LOW NBP: SBP IN 80S. NBP RECOVERED WITH FLUID BOLUS AND DECREASE OF PROPOFOL INTERVENTIONS. -URINE DARK YELLOW AND CLOUDY -VENT SETTINGS CHANGED: RATE25, Vt335, FiO2 65%, PEEP 20
--- NOTE | 2021-05-27 10:29 | NUR ---
DR PACK AT BEDSIDE. AWAITING NEW ORDERS. PT OPENS EYES TO COMMAND. NO ACUTE DISTRESS. PEEP DOWN TO 18 PER NEW ORDERS.
--- NOTE | 2021-05-27 12:18 | NUR ---
TF INCREASED TO GOAL OF 25ML/HR
--- NOTE | 2021-05-27 13:05 | NUR ---
PEEP DOWN TO 16 PER VERBAL ORDER FROM DR PACK. CURRENT SATS 94%, FIO2-55%
--- NOTE | 2021-05-27 17:54 | NUR ---
PT REMAINS SEDATED AND INTUBATED ON VENTILATOR. VENT SENTTINGS AC-25, TV-335, PEEP-16, FIO2-55%. PROPOFOL IS CURRENTLY INFUSING AT 365MCG/KG/MIN. PT CONTINUES TO FOLLOW SIMPLE COMMANDS. BILATERAL SOFT WRIST RESTRAINTS REMAIN IN PLACE PT IS HIGH RISK FOR SELF EXTUBATION. REPORT TO BE GIVEN TO ONCOMING RN.
[2021-05-28 03:50] LABS: BASOPHILS ABSOLUTE AUTO 0.01 K/mm3 (0.00-0.23); BASOPHILS PERCENT AUTO 0 % (0-2); EOSINOPHILS ABSOLUTE AUTO 0.06 K/mm3 (0.00-0.68); EOSINOPHILS PERCENT AUTO 1 % (0-6); Hematocrit 33.2 % (33.0-51.0); Hemoglobin 10.9 g/dL (11.5-16.0); IMMATURE GRAN ABSOLUTE AUTO 0.36 K/mm3 (0.00-0.10); IMMATURE GRAN PERCENT AUTO 4 % (0-1); LYMPHOCYTES ABSOLUTE AUTO 0.73 K/mm3 (0.84-5.20); LYMPHOCYTES PERCENT AUTO 8 % (21-46); MONOCYTES ABSOLUTE AUTO 0.49 K/mm3 (0.16-1.47); MONOCYTES PERCENT AUTO 5 % (4-13); Mean Corpuscular HGB 30.1 pg (26.0-34.0); Mean Corpuscular HGB Conc 32.8 g/dL (31.5-36.5); Mean Corpuscular Volume 92 fL (80-100); Mean Platelet Volume 10.6 fL (9.1-12.4); NEUTROPHILS ABSOLUTE AUTO 7.84 K/mm3 (1.96-9.15); NEUTROPHILS PERCENT AUTO 83 % (41-73); Platelet Count 352 K/mm3 (150-400); RDW Coefficient Variation 13.1 % (11.7-14.2); RDW Standard Deviation 44.1 fL (35.1-46.3); Red Blood Cell Count 3.62 M/mm3 (3.80-5.20); White Blood Cell Count 9.49 K/mm3 (4.00-11.30)
[2021-05-28 04:07] LABS: Anion Gap 4 mmol/L (6-16); Blood Urea Nitrogen 41 mg/dL (8-24); CO2, Blood 30 mmol/L (21-32); Calcium, Blood 8.3 mg/dL (8.5-10.1); Chloride, Blood 110 mmol/L (98-108); Creatinine, Blood 0.63 mg/dL (0.40-1.00); Glomerular Filtration Rate >60 (60-); Glucose, Blood 297 mg/dL (70-99); Phosphorus, Blood 3.1 mg/dL (2.5-4.9); Potassium, Blood 4.6 mmol/L (3.5-5.5); Sodium, Blood 144 mmol/L (136-145)
--- NOTE | 2021-05-28 06:29 | NUR ---
END OF SHIFT SUMMARY: - ATTEMPT TO WEAN DOWN FROM PROPOFOL, PATIENT COUGHED FREQUENTLY, BUCKED VENT --> ATIVAN PRN GIVEN AND PROPOFOL INCREASED. - FiO2 AT 80% OTHERWISE NO CHANGES
--- NOTE | 2021-05-28 08:30 | NUR ---
ASSUMING CARE OF PT RESP: INTUBATED ON VENT AC/25/335/16/80% MINIMAL SECRETIONS. STATS 90-93% PT DESTATS WITH TURNS MID 70% LOC: ON PROPOFOL 50/FENTANYL 100. +COUGH + GAG DOES NOT FOLLOW COMMANDS GI: OGT TO TUBE FEEDINGS AT GOAL : LUCAS TO GRAVITY SKIN: FLUSHED, BLANCHABLE REDNESS ON BACK. ABD FOLDS RED/ESCORIATED.
--- NOTE | 2021-05-28 17:21 | NUR ---
BENOIT PT PRONED AT 1200, FENTANYL INCREASED TO 150 TO WEAN PT DOWN ON PROPOFOL PER DR. HANLEY. FIO2 DECREASED TO 75%. NO OTHER CHANGES TO REPORT. FAMILY UPDATED. AUNT OR MOM PLAN TO GEOLOGY ASSOCIATE PATIENT'S PURSE.
--- NOTE | 2021-05-29 01:32 | NUR ---
FAMILY UPDATED: AUNT SAAD
[2021-05-29 04:59] LABS: BASOPHILS ABSOLUTE AUTO 0.03 K/mm3 (0.00-0.23); BASOPHILS PERCENT AUTO 0 % (0-2); EOSINOPHILS ABSOLUTE AUTO 0.18 K/mm3 (0.00-0.68); EOSINOPHILS PERCENT AUTO 1 % (0-6); Hematocrit 35.1 % (33.0-51.0); Hemoglobin 11.2 g/dL (11.5-16.0); IMMATURE GRAN ABSOLUTE AUTO 0.42 K/mm3 (0.00-0.10); IMMATURE GRAN PERCENT AUTO 3 % (0-1); LYMPHOCYTES PERCENT AUTO 14 % (21-46); MONOCYTES PERCENT AUTO 7 % (4-13); Mean Corpuscular HGB 29.4 pg (26.0-34.0); Mean Corpuscular HGB Conc 31.9 g/dL (31.5-36.5); Mean Corpuscular Volume 92 fL (80-100); Mean Platelet Volume 10.5 fL (9.1-12.4); NEUTROPHILS ABSOLUTE AUTO 10.44 K/mm3 (1.96-9.15); NEUTROPHILS PERCENT AUTO 75 % (41-73); Platelet Count 377 K/mm3 (150-400); RDW Coefficient Variation 13.2 % (11.7-14.2); RDW Standard Deviation 44.3 fL (35.1-46.3); Red Blood Cell Count 3.81 M/mm3 (3.80-5.20); White Blood Cell Count 13.97 K/mm3 (4.00-11.30)
[2021-05-29 05:14] LABS: Anion Gap 5 mmol/L (6-16); Blood Urea Nitrogen 37 mg/dL (8-24); Bun/Creatinine Ratio 61.7 (12.0-20.0); CO2, Blood 29 mmol/L (21-32); Calcium, Blood 8.1 mg/dL (8.5-10.1); Chloride, Blood 111 mmol/L (98-108); Glomerular Filtration Rate >60 (60-); Glucose, Blood 166 mg/dL (70-99); Magnesium, Blood 2.4 mg/dL (1.6-2.4); Phosphorus, Blood 2.9 mg/dL (2.5-4.9); Potassium, Blood 3.5 mmol/L (3.5-5.5); Sodium, Blood 145 mmol/L (136-145)
--- NOTE | 2021-05-29 05:56 | NUR ---
END OF SHIFT SUMMARY NOTE: -PROPOFOL REMAINS AT 30MCG/KG/MIN - PATIENT HAS COUGHING EPISODES - PRN ATIVAN GIVEN. FENTANYL GTT AT 150MCG/HR. -WBC LEVEL ELEVATED THIS MORNING. - WHITE/FAN VAGINAL DISCHARGE NOTED DURING ASSESSMENT - PERICARE AND LUCAS CARE PROVIDED. HIGHEST TEMP 99.9F AXILLARY. -BLOOD GLUCOSE LEVELS TRENDING DOWNWARD. MORNING GLUCOSE < 200. -ETT AT 28@LIP - NO CHANGES TO VENT SETTINGS OVER NIGHT -LARGE AMOUNT OF ORAL AND NASAL SECRETIONS WHEN PATIENT IS PRONE, MINIMAL TO NO SECRETIONS WITH INLINE SUCTIONING. -PATIENT RESPONSIVE TO LASIX -STILL NO BM DESPITE SCHEDULED AND PRN BOWEL CARE ADMINISTRATION
--- NOTE | 2021-05-29 07:04 | NUR ---
FENTANYL GTT PASSED OFF TO DAYSHIFT ESSENCE PICHARDO.
--- NOTE | 2021-05-29 17:28 | NUR ---
SUMMARY PT INTUBATED AND SEDATED WITH PROPOFOL AND FENTANYL. PT HAS GAG AND COUGH. PUPILS EQUAL AND REACTIVE. NO MOVEMENT OF EXTREMITIES. NO SEDATION TITRATION TODAY DUE TO VENT SETTINGS. PT WAS UNPRONED AT 1200 AFTER BEING PRONED FOR 24HRS. UA, SPUTUM, AND BC'S SENT TODAY DUE TO INCREASE IN WBC'S AND LOW GRADE TEMP ON MONEY COUNTER. NO TEMP TODAY. NO CHANGES TO VENT SETTINGS TODAY. NO OTHER ACUTE CHANGES. AUNT-SAAD IN TO SEE PT NOW AND UPDATED.
--- NOTE | 2021-05-29 19:47 | NUR ---
Assumed care. Report recieved from goranscmarsha RN. Pt currently in bed, sedated and on ventilator via ETT. Vent settings: AC/VC 25/tv335/peep16/80% Fi02. OG tube in place, Vital High Protein running at goal rate of 25 ml/hr. PICC line in RODRIGUEZ, IV pump settings: Propofol 40 mcg/kg/min, Fentanyl 150 mcg/hr, NS 10 ml/hr. Royal catheter in place, draining cinthya colored urine with sediment. No acute needs noted at this time, will continue to monitor. See shift assessment for details.
[2021-05-30 03:55] LABS: BASOPHILS ABSOLUTE AUTO 0.03 K/mm3 (0.00-0.23); BASOPHILS PERCENT AUTO 0 % (0-2); EOSINOPHILS ABSOLUTE AUTO 0.01 K/mm3 (0.00-0.68); EOSINOPHILS PERCENT AUTO 0 % (0-6); Hematocrit 29.8 % (33.0-51.0); Hemoglobin 9.8 g/dL (11.5-16.0); IMMATURE GRAN ABSOLUTE AUTO 0.21 K/mm3 (0.00-0.10); IMMATURE GRAN PERCENT AUTO 2 % (0-1); LYMPHOCYTES ABSOLUTE AUTO 0.69 K/mm3 (0.84-5.20); LYMPHOCYTES PERCENT AUTO 7 % (21-46); MONOCYTES ABSOLUTE AUTO 0.41 K/mm3 (0.16-1.47); MONOCYTES PERCENT AUTO 4 % (4-13); Mean Corpuscular HGB 30.1 pg (26.0-34.0); Mean Corpuscular HGB Conc 32.9 g/dL (31.5-36.5); Mean Corpuscular Volume 91 fL (80-100); Mean Platelet Volume 10.3 fL (9.1-12.4); NEUTROPHILS ABSOLUTE AUTO 8.16 K/mm3 (1.96-9.15); NEUTROPHILS PERCENT AUTO 86 % (41-73); Platelet Count 285 K/mm3 (150-400); RDW Standard Deviation 42.7 fL (35.1-46.3); Red Blood Cell Count 3.26 M/mm3 (3.80-5.20); White Blood Cell Count 9.51 K/mm3 (4.00-11.30)
[2021-05-30 04:12] LABS: Anion Gap 3 mmol/L (6-16); Blood Urea Nitrogen 37 mg/dL (8-24); Bun/Creatinine Ratio 56.7 (12.0-20.0); CO2, Blood 32 mmol/L (21-32); Calcium, Blood 8.2 mg/dL (8.5-10.1); Chloride, Blood 107 mmol/L (98-108); Creatinine, Blood 0.65 mg/dL (0.40-1.00); Glomerular Filtration Rate >60 (60-); Glucose, Blood 318 mg/dL (70-99); Potassium, Blood 4.1 mmol/L (3.5-5.5); Sodium, Blood 142 mmol/L (136-145)
--- NOTE | 2021-05-30 05:30 | NUR ---
Cleared 922 ml volume infused from Fentanyl Pump. Verified by Radha LOWRY.
--- NOTE | 2021-05-30 06:30 | NUR ---
Shift summary. Pt continues on ventilator and sedation in bed. Pt currently prone. Ventilator settings: AC/VC 25/tv335/peep16/90%Fi02. OG tube in place, tube feed running at goal rate 25 ml/hr. PICC in JAMES, IV pump settings: propofol 40 mcg/kg/min, Fentanyl 150 mcg/hr. Royal catheter in place, draining cinthya urine. Pt rested quietly throughout shift, see shift assessment for details. Will continue to monitor and report off to dayshift RN.
--- NOTE | 2021-05-30 18:46 | NUR ---
SUMMARY PT INTUBATED AND SEDATED WITH PROPOFOL AND FENTANYL. FENTANYL DECREASED TODAY. PT HAS BEEN PRONED ALL DAY AND DR. SALCEDO WANTS TO UNPRONE AT 1999. PT WAS ABLE TO LIFT HEAD UP OFF PILLOW AT ONE POINT TODAY WHILE PO CARE WAS BEING DONE AND OPENED EYE'S. GAVE A DOSE OF ATIVAN. NO ACUTE CHANGES THIS SHIFT. REPORT TO RILEY, FENTANYL GTT HANDED TO THEM TO REPLACE SOON.
--- NOTE | 2021-05-30 19:26 | NUR ---
Assumed care. Report recieved from dayscaft RN. Pt continues in bed, sedated and ventilated. Vent settings: AC/VC 25/335/16/60%. OG tube in place, tube feed running at 25 ml/hr. PICC line in RODRIGUEZ, IV pump settings: Propofol 40 mcg/kg/min, Fentanyl 100 mcg/hr. Royal catheter in place, draining dark yellow urine. No acute needs noted at this time, will continue to monitor. See shift assessment for details.
--- NOTE | 2021-05-31 06:20 | NUR ---
Shift summary. Pt continues on ventilator and sedation. Vent settings: AC/VC 25, tv335, peep16, 70% Fi02. OG tube in place, tube feed running at goal rate, no residuals this shift. PICC line in place, IV pump settings: Propofol 40 mcg/kg/min, Fentanyl AQUATICS COORDINATOR 75 mcg/hr, NS 10 ml/hr. Royal catheter in place, draining dark yellow urine. BP/vital signs stable throughout shift. Will continue to monitor and report off to dayshift RN.
--- NOTE | 2021-05-31 17:50 | NUR ---
SUMMARY PT INTUBATED AND SEDATED WITH PROPOFOL AND FENTANYL. PT WILL TRY TO OPEN EYE'S TO VOICE. HAS BEEN SPONT LIFTING L HAND. HAS COUGH AND GAG. [place] 3. DR. SALCEDO INCREASED PEEP TO 18 TODAY. FIO2 TITRATED DOWN TO 65%. PT SUPINE TODAY. NO OTHER CHANGES THIS SHIFT.
--- NOTE | 2021-05-31 19:05 | NUR ---
Assumed care. Report recieved from dayshift RN. PT continues in bed, ventilated and sedated. Vent settings: AC/VC 25/335/18/65%. OG tube in place, tube feed running at 25 ml/hr. PICC in RODRIGUEZ, IV pump settings: Propofol 40 mcg/kg/min, Fentanyl SHAKE BACKBOARD NOTCHER 75 mcg/hr, NS 10 ml/hr x2. Royal catheter in place, draining cinthya urine. No acute needs noted at this time, will continue to monitor. See shift assessment for details.
[2021-06-01 04:04] LABS: BASOPHILS ABSOLUTE AUTO 0.05 K/mm3 (0.00-0.23); BASOPHILS PERCENT AUTO 1 % (0-2); EOSINOPHILS ABSOLUTE AUTO 0.11 K/mm3 (0.00-0.68); EOSINOPHILS PERCENT AUTO 1 % (0-6); Hemoglobin 9.4 g/dL (11.5-16.0); IMMATURE GRAN ABSOLUTE AUTO 0.18 K/mm3 (0.00-0.10); IMMATURE GRAN PERCENT AUTO 2 % (0-1); LYMPHOCYTES ABSOLUTE AUTO 1.91 K/mm3 (0.84-5.20); LYMPHOCYTES PERCENT AUTO 20 % (21-46); MONOCYTES ABSOLUTE AUTO 0.62 K/mm3 (0.16-1.47); MONOCYTES PERCENT AUTO 7 % (4-13); Mean Corpuscular HGB 29.6 pg (26.0-34.0); Mean Corpuscular HGB Conc 32.4 g/dL (31.5-36.5); Mean Corpuscular Volume 91 fL (80-100); Mean Platelet Volume 10.8 fL (9.1-12.4); NEUTROPHILS ABSOLUTE AUTO 6.63 K/mm3 (1.96-9.15); NEUTROPHILS PERCENT AUTO 70 % (41-73); Platelet Count 278 K/mm3 (150-400); RDW Coefficient Variation 13.1 % (11.7-14.2); RDW Standard Deviation 42.9 fL (35.1-46.3); Red Blood Cell Count 3.18 M/mm3 (3.80-5.20)
[2021-06-01 04:21] LABS: Albumin, Blood 1.5 g/dL (3.4-5.0); Anion Gap 3 mmol/L (6-16); Blood Urea Nitrogen 30 mg/dL (8-24); Bun/Creatinine Ratio 51.9 (12.0-20.0); CO2, Blood 33 mmol/L (21-32); Calcium, Blood 8.3 mg/dL (8.5-10.1); Chloride, Blood 109 mmol/L (98-108); Creatinine, Blood 0.58 mg/dL (0.40-1.00); Glomerular Filtration Rate >60 (60-); Glucose, Blood 138 mg/dL (70-99); Phosphorus, Blood 2.8 mg/dL (2.5-4.9); Potassium, Blood 3.2 mmol/L (3.5-5.5); Sodium, Blood 145 mmol/L (136-145)
--- NOTE | 2021-06-01 06:14 | NUR ---
Shift summary. Pt continues in bed, sedated, on ventilator. Vent settings: AC/VC 25/335/16/65%. OG tube in place, tube feed running at goal rate 25 ml/hr. PICC line in place RODRIGUEZ, IV pump settings: Propofol 40 mcg/kg/min, Fentanyl FRANCHISE SALES REPRESENTATIVE 75 mcg/hr, NS 10 ml/hr. Royal catheter in place, draining cinthya urine. Pt rested quietly throughout shift, opens eyes to verbal stimuli and will move fingers/toes when asked. Peep pressure titrated down from 18 to 16 by RT, sats remain above 90%. Will continue to monitor and report off to dayshift RN. See shift assessment for details.
--- NOTE | 2021-06-01 09:03 | NUR ---
ASSUMING CARE OF PT. RESP: INTUBATED A/C /16/65 MODERATE SECRETIONS LOC: LOCALIZES, FOLLOWS SIMPLE COMMANDS AT TIMES WITH SEDATION VAC CARDIO: SB ON MONTIOR. GENERALIZED EDEMA DOPPLER B/L PEDAL PULSE. STRONG RADIAL PULSES B/L FOLEU TO GRAVITY GI: TUBE FEEDINGS TO OGT AT GOAL. LAST BM 05/30/21 SKIN PALE, BLANCHABLE REDNESS HEELS. MISC: B/L WRIST RESTRAINTS. VSS.
--- NOTE | 2021-06-01 22:01 | NUR ---
ASSUMED PT CARE AT 1915 PT REMAINS INTUBATED AND SEDATED. VENT AC/VC 25, VT 335, PEEP 16, FIO2 65%. PROPOFOL AT 40MCG/KG/MIN, AND FENTANYL GTT AT 75MCG/HR VIA PICC TO RIGHT UPPER ARM. PT ABLE TO OPEN EYES SPONTANEOUSLY, FOLLOW COMMANDS, NOD HEAD YES/NO TO QUESTIONS. DURING ORAL CARES PT WENT INTO A COUGHING/GAGGING EPISODE WHERE HER OXYGEN SATURATIONS DROPPED TO 80% AND HER HR INCREASED TO 140'S; SINUS TACHYCARDIA. MEDICATED WITH DILAUDID ADJUNCTIVELY WITH MINIMAL EFFECT; THEREFORE, INCREASED PROPOFOL TO 55MCG/KG/MIN AND FENTANYL TO 100MCG/HR. FIO2 REQUIRED TO BE INCREASED TO 70% AFTER EPISODE ENDED AND AFTER PT WAS OXYGENATED FOR 2 MINUTES AT 100% FIO2. VHP INFUSING AT GOAL OF 25ML/HR WITH NO RESIDUALS. BOWEL TONES ARE HYPOACTIVE X4 QUADRANTS; NO BM X2 DAYS. DSS GIVEN PER ORDERS. LUCAS CATHETER IS PATENT AND DRAINING MINIMAL AMOUNTS OF DARK, CRISTINA COLORED URINE TO GRAVITY. SEE SHIFT SUMMARY FOR FURTHER DETAILS.
[2021-06-02 04:56] LABS: Albumin, Blood 1.6 g/dL (3.4-5.0); Anion Gap 5 mmol/L (6-16); Blood Urea Nitrogen 23 mg/dL (8-24); Bun/Creatinine Ratio 40.6 (12.0-20.0); CO2, Blood 30 mmol/L (21-32); Calcium, Blood 8.3 mg/dL (8.5-10.1); Chloride, Blood 109 mmol/L (98-108); Creatinine, Blood 0.57 mg/dL (0.40-1.00); Glomerular Filtration Rate >60 (60-); Glucose, Blood 146 mg/dL (70-99); Phosphorus, Blood 2.8 mg/dL (2.5-4.9); Potassium, Blood 3.7 mmol/L (3.5-5.5); Sodium, Blood 144 mmol/L (136-145)
--- NOTE | 2021-06-02 05:43 | NUR ---
END OF SHIFT SUMMARY PT HAS REQUIRED SIGNIFICANT INCREASE IN SEDATIVE MEDICATIONS TONIGHT D/T COUGHING/GAGGING EPISODES THAT DROP HER OXYGEN SATURATIONS TO THE LOW 80'S. PROPOFOL IS CURRENTLY AT 55MCG/KG/MIN AND FENTANYL AT 100MCG/HR. PT HAS ALSO RECEIVED ADJUNCT DILAUDID PUSHES 1MG APPROX EVERY 3-4 HOURS PRN. PT CONTINUES TO PRODUCE COPIOUS AMOUNTS OF ORAL SECRETIONS; VERY MINIMAL ETT SECRETIONS THIS SHIFT. PT MAY BENEFIT FROM A COUGH SUPPRESSANT HER COUGHING EPISODES TEND TO LAST LONG CAUSING HER HR TO INCREASE, AND HER OXYGEN SATURATIONS TO DROP. CURRENTLY PT APPEARS COMFORTABLE; HOWEVER, BP'S ARE STARTING TO BECOME SOFT WITH SBP 80-90'S FROM EARLY IN SHIFT WHERE THEY WERE 120-130'S SYSTOLIC. PT STILL ABLE TO OPEN EYES AND NOD HEAD YES/NO TO QUESTIONS WITH SEDATION AT ITS CURRENT SETTINGS. PT HAS BEEN NSR TO SINUS TACHYCARDIA ANYWHERE FROM 80-120'S. VHP CONTINUES TO INFUSE AT GOAL OF 25ML/HR; NO RESIDUALS. NO BM THIS SHIFT. PT APPEARS TO BE FLUID POSITIVE ACCORDING TO I/O DOCUMENTATION. URINE IS BECOMING VERY HAZY AND IS A DARK TEA COLOR WITH ODOR NOTED; 500CC OUT FOR THIS SHIFT. VENT SETTINGS AC/VC 18, VT 330, PEEP 16, FIO2 70%. WILL CONTINUE TO MONITOR UNTIL REPORT IS HANDED OFF TO ONCOMING RN.
[2021-06-02 09:06] LABS: Source, Urine Catheter
[2021-06-02 09:27] LABS: Bilirubin, Urine Neg (Neg); Blood, Urine 1+ (Neg); Glucose Qualitative, Urine Neg (Neg); Ketones, Urine Neg (Neg); Leukocyte Esterase, Urine Neg (Neg); Nitrite, Urine Neg (Neg); Protein, Urine 3+ (Neg); Specific Gravity, Urine 1.015 (1.003-1.022); Urobilinogen, Urine NORM (Normal)
[2021-06-02 10:06] LABS: Appearance, Urine Clear (Clear); Bacteria Not Seen /hpf; Color, Urine Yellow (P-Yellow); Squamous Epithelial Cells Not Seen /hpf (Few); White Blood Cells, Urine 0-2 /hpf (0-5)
--- NOTE | 2021-06-02 13:22 | NUR ---
Spiritual care visit conducted. Patient is lying in bed and minimally responsive. I talked to patient about all the friends and family that are praying her and about how well she is doing. Patient nods her head affirmingly when I asked If I could pray for her. Which I gladly did. She also nodded a "yes" when asked if the prayer was okay, if she was comfortable and when asked if she remembered that she was deeply loved. I will continue to remain available to patient and family.
--- NOTE | 2021-06-02 18:03 | NUR ---
SUMMERY RESP, INTUBATED- AC 25/335/16/70% MODERATE ORAL SECRETIONS CARDIO: NSR GENERALIZED EDEMA LOC: TRACKS, OPENS EYES TO VERBAL STIMULI LUCAS TO GRAVITY; URINE CULTURES SENT, OUTPUT 1300ML GI: OGT TO TUBE FEEDINGS AT GOAL SKIN: INTACT, FLUSHED MISC: BATH GIVEN, ORAL AND TURNS DONE Q2
--- NOTE | 2021-06-02 19:52 | NUR ---
Assumed care. Report recieved by lizbeth LOWRY. Pt in bed, sedated and on ventilator. Vent settings: AC/VC 25/335/16/60%. OG tube in place, tube feed running at 25 ml/hr. PICC in RODRIGUEZ, WNL, IV pump settings: Propofol 50 mcg/kg/min, fentanyl ACCOUNTING TECHNICIAN 100 mcg/hr, NS 10 ml/hr. Royal catheter in place, draining cinthya urine. No acute needs noted at this time, will continue to monitor. See shift assessment for details.
[2021-06-03 04:46] LABS: BASOPHILS ABSOLUTE AUTO 0.04 K/mm3 (0.00-0.23); BASOPHILS PERCENT AUTO 1 % (0-2); EOSINOPHILS ABSOLUTE AUTO 0.08 K/mm3 (0.00-0.68); EOSINOPHILS PERCENT AUTO 1 % (0-6); Hematocrit 28.1 % (33.0-51.0); Hemoglobin 9.1 g/dL (11.5-16.0); IMMATURE GRAN ABSOLUTE AUTO 0.12 K/mm3 (0.00-0.10); IMMATURE GRAN PERCENT AUTO 2 % (0-1); LYMPHOCYTES ABSOLUTE AUTO 2.05 K/mm3 (0.84-5.20); LYMPHOCYTES PERCENT AUTO 25 % (21-46); MONOCYTES ABSOLUTE AUTO 0.43 K/mm3 (0.16-1.47); MONOCYTES PERCENT AUTO 5 % (4-13); Mean Corpuscular HGB 29.6 pg (26.0-34.0); Mean Corpuscular HGB Conc 32.4 g/dL (31.5-36.5); Mean Corpuscular Volume 92 fL (80-100); Mean Platelet Volume 10.3 fL (9.1-12.4); NEUTROPHILS ABSOLUTE AUTO 5.47 K/mm3 (1.96-9.15); NEUTROPHILS PERCENT AUTO 67 % (41-73); NRBC ABSOLUTE 0.02 K/mm3 (0.00-0.02); NRBC Auto 0.2 /100 WBC (0.0-0.2); Platelet Count 215 K/mm3 (150-400); RDW Coefficient Variation 13.3 % (11.7-14.2); RDW Standard Deviation 43.6 fL (35.1-46.3); Red Blood Cell Count 3.07 M/mm3 (3.80-5.20); White Blood Cell Count 8.19 K/mm3 (4.00-11.30)
[2021-06-03 05:05] LABS: Albumin, Blood 1.6 g/dL (3.4-5.0); Anion Gap 5 mmol/L (6-16); Blood Urea Nitrogen 21 mg/dL (8-24); Bun/Creatinine Ratio 39.4 (12.0-20.0); CO2, Blood 31 mmol/L (21-32); Calcium, Blood 8.4 mg/dL (8.5-10.1); Chloride, Blood 106 mmol/L (98-108); Creatinine, Blood 0.53 mg/dL (0.40-1.00); Glomerular Filtration Rate >60 (60-); Glucose, Blood 157 mg/dL (70-99); Magnesium, Blood 2.2 mg/dL (1.6-2.4); Phosphorus, Blood 3.1 mg/dL (2.5-4.9); Potassium, Blood 3.3 mmol/L (3.5-5.5); Sodium, Blood 142 mmol/L (136-145); Triglycerides 299 mg/dL (30-160)
--- NOTE | 2021-06-03 06:16 | NUR ---
Shift summary. Pt continues in bed, ventilated and on sedation. Vent settings: AC/VC 25/335/16/80%. OG tube in place, tube feed running at goal rate 25 ml/hr. PICC in RODRIGUEZ, IV pump settings: Propofol 50 mcg/kg/min, Fentanyl DATE NIGHT SITTER 100 mcg/hr. Royal catheter in place, draining cinthya urine. Patient maintained 02 sats throughout shift until approximately 0400 then began to desat into 80s, titrated Fi02 up from 60 to 100 and then back down to 80, patient maintained sats above 90%. Currently 91% at 80% Fi02. No acute needs at this time, will continue to monitor and report off to dayshift RN.
--- NOTE | 2021-06-03 15:25 | NUR ---
Spiritual care visit conducted. Patient tells me about her struggles with stress but also talks about how well she is doing physically. She expresses much gratitude for her bed bath. She states that it felt like spa-day and that it did wonders for her whole being. I provide anxiety containment, therapeutic listening and prayer.
--- NOTE | 2021-06-03 17:12 | NUR ---
NEURO: SEDATED, FOLLOWS COMMANDS, PUPPILS 4MM REACTIVE, REQUIRED INCREASED SEDATION FOR VENT COMPLIANCE, NIMBEX INITIATED CURRENTLY AT 3.5MCG/KG/MIN TO TOF 2/4 FOR POWER LEVEL 3, GCS NOW 3 UNRESPONSIVE, BIS MONITORING SUYSTEM BETWEEN 40-60 WITH PROPOFOL SEDATION AT 40. CARDIO: NSR/ST BETWEEN 60-110 WORSE WITH AGITATION, DECREASED WITH SEDATION/PARLYTICS, +2/+1 RADIAL/DORSAL PULSES RESPECTIVELY, +2 BLE EDEMA IMPROVED WITH LASIX. RESP: VENTILATED, COARSE LUNG SOUNDS, VENT ASONCHRONY WITH INCREASED PEEP TO 18 REQUIRMENT AND 100 FIO2 NEEDS, CXRAY OBTAINED, 40MG LASIX GIVEN, INITIATION OF NIMBEX TO MAINTAIN VENT COMPLIANCE, NOW SATTING WNL AT 65%. GI/: DECREASED UOP MD AWARE, LASIX GIVEN WITH ADEQUATE UOP RESULTED, OBESE ABDOMEN, AUDIBLE BOWELS, NO BM SINCE 05/30 DESPITE BOWEL SOUNDS. LABS: 3.3 AM K, GIVEN 40MEQ SCHEDULED ALONG WITH ADDITIONAL 40MEQ, ORDER CHANGED TO 40MEQ BID TO MAINTAIN LEVELS.
--- NOTE | 2021-06-03 19:24 | NUR ---
Assumed care. Report recieved by lizbeth LOWRY. Pt in bed, sedated, paralyzed and on ventilator. Vent settings: AC/VC 25/335/18/65%. OG tube in place, tube feed running at goal rate 25 ml/hr. PICC in RODRIGUEZ, wnl, IV pump settings: Nimbex 3.5 mcg/kg/min, Propofol 40 mcg/kg/min, Fentanyl EDITOR & CO FOUNDER 100 mcg/hr, NS 10 ml/hr. Biz monitor reading 40-50s currently. Royal catheter in place, draining yellow urine. No acute needs noted at this time will continue to monitor.
[2021-06-04 04:36] LABS: Albumin, Blood 1.6 g/dL (3.4-5.0); Anion Gap 4 mmol/L (6-16); Blood Urea Nitrogen 23 mg/dL (8-24); Bun/Creatinine Ratio 49.1 (12.0-20.0); CO2, Blood 31 mmol/L (21-32); Calcium, Blood 8.3 mg/dL (8.5-10.1); Chloride, Blood 106 mmol/L (98-108); Creatinine, Blood 0.47 mg/dL (0.40-1.00); Glomerular Filtration Rate >60 (60-); Glucose, Blood 146 mg/dL (70-99); Phosphorus, Blood 2.7 mg/dL (2.5-4.9); Potassium, Blood 4.1 mmol/L (3.5-5.5); Sodium, Blood 141 mmol/L (136-145)
[2021-06-04 04:41] LABS: BASOPHILS ABSOLUTE AUTO 0.04 K/mm3 (0.00-0.23); BASOPHILS PERCENT AUTO 1 % (0-2); EOSINOPHILS ABSOLUTE AUTO 0.07 K/mm3 (0.00-0.68); EOSINOPHILS PERCENT AUTO 1 % (0-6); Hematocrit 26.5 % (33.0-51.0); Hemoglobin 8.5 g/dL (11.5-16.0); IMMATURE GRAN PERCENT AUTO 1 % (0-1); LYMPHOCYTES ABSOLUTE AUTO 1.68 K/mm3 (0.84-5.20); LYMPHOCYTES PERCENT AUTO 21 % (21-46); MONOCYTES ABSOLUTE AUTO 0.39 K/mm3 (0.16-1.47); MONOCYTES PERCENT AUTO 5 % (4-13); Mean Corpuscular HGB 29.5 pg (26.0-34.0); Mean Corpuscular HGB Conc 32.1 g/dL (31.5-36.5); Mean Corpuscular Volume 92 fL (80-100); NEUTROPHILS ABSOLUTE AUTO 5.69 K/mm3 (1.96-9.15); NEUTROPHILS PERCENT AUTO 71 % (41-73); Platelet Count 218 K/mm3 (150-400); RDW Coefficient Variation 13.4 % (11.7-14.2); RDW Standard Deviation 44.8 fL (35.1-46.3); Red Blood Cell Count 2.88 M/mm3 (3.80-5.20); White Blood Cell Count 7.97 K/mm3 (4.00-11.30)
--- NOTE | 2021-06-04 06:20 | NUR ---
Shift summary. Pt continues in bed, sedated, paralyzed and ventilated. Vent settings: AC/VC 25/335/18/65%. OG tube in place, no residuals noted this shift, tube feed running at goal rate. PICC line in place, IV pump settings: Propofol 40 mcg/kg/min, Nimbex 4 mcg/kg/min, Fentanyl 100 mcg/hr, NS 10 ml/hr. Nimbex titrated up from 3.5 to 4 during shift, TO4 2/4 at 5. Royal catheter in place, draining dark cinthya urine, 350 out this shift. See shift assessment for details. Will continue to monitor and report off to dayshift RN.
[2021-06-04 13:12] LABS: PCO2 Arterial 54.8 mmHg (35-45); pH Blood Arterial 7.38 (7.35-7.45)
[2021-06-04 13:13] LABS: PO2 Arterial 79.3 mmHg (80-100)
--- NOTE | 2021-06-04 16:11 | NUR ---
Spoke to pt's aunt Radha by phone, she states she is the primary next of kin for patient. She states pt has a 17 year old daughter and her mom is 72 and neither of them are comfortable hearing the updates regularly, and instead get the updates from Radha. At this time, there is a plan in place for pt to have trach placed in 4 days. No changes to pt's care plan at this time.
--- NOTE | 2021-06-04 17:53 | NUR ---
Neuro: OMAR orientation due to sedation/paralytics, pupils 5mm brisk, GCS 3, no response, nimbex continues at 4, TOF between power level 3 and 4 for 2/4 twitches, labile sedation needs curently 30 prop, 100 fent. Cardio: HR labile this shift, SR 70s to ST 130s dependent on stimulation/turns/sedation level, no ectopy noted, edema BLE +2 improved throuhgout shift to +1 ankle/feet. Resp: intubated, coarse/dim lungs, moderate to small amount of secretions through shift, thin/creamy, vent settings worse on initial as high as 85% FIO2 and 18 PEEP and as low as 35% FIO2 PEEP 16, improved settings required increased ativan needs 8mg given this shfit and 40mq lasix. GI/: obese abdomen, 10/9 LBM, given colace and biscodyl, 2 moderate to small BMs type 6, bowel program successful, UOP through ortiz improved with lasix 40meq, 3100ml out. Labs: ABG obtained, slightly worse PaCO2 and PaO2 from 05/25 still compensated Resp acidosis, NOC 18 beat PSVT reported, Ical and Mag obtained WNL. Q2 turns completed per policy.
--- NOTE | 2021-06-04 19:00 | NUR ---
ASSUME CARE NOTE: PATIENT INTUBATED, SEDATED, AND PARAYLZED. VENT SETTINGS: ACVC 25/335/16/55% AND SATING 95%. TOF IS 2/4 AT 4TH POWER WITH A BIS OF 45. NO COUGH OR GAG PRESENT. HR AND BP WNL. LUCAS DRAINING DARK YELLOW URINE TO GRAVITY. OG TO TF RUNNING AT GOAL WITH NO RESIDUALS. SKIN IS COOL, DRY, & INTACT WITH BRUISING TO THE ABDOMEN. PICC LINE DRESSING IS C/D/I. SEE SHIFT ASSESSMENT FOR DETAILS.
--- NOTE | 2021-06-04 23:43 | NUR ---
FAMILY UPDATE: UPDATED PATIENT'S AUNT, SAAD, IN REGARDS TO STATUS. SHE HAS NO QUESTIONS OR CONCERNS AT THIS TIME.
[2021-06-05 03:58] LABS: BASOPHILS ABSOLUTE AUTO 0.09 K/mm3 (0.00-0.23); BASOPHILS PERCENT AUTO 1 % (0-2); EOSINOPHILS ABSOLUTE AUTO 0.11 K/mm3 (0.00-0.68); EOSINOPHILS PERCENT AUTO 1 % (0-6); Hematocrit 31.2 % (33.0-51.0); Hemoglobin 9.8 g/dL (11.5-16.0); IMMATURE GRAN ABSOLUTE AUTO 0.27 K/mm3 (0.00-0.10); IMMATURE GRAN PERCENT AUTO 3 % (0-1); LYMPHOCYTES ABSOLUTE AUTO 2.32 K/mm3 (0.84-5.20); LYMPHOCYTES PERCENT AUTO 22 % (21-46); MONOCYTES ABSOLUTE AUTO 0.61 K/mm3 (0.16-1.47); MONOCYTES PERCENT AUTO 6 % (4-13); Mean Corpuscular HGB 29.1 pg (26.0-34.0); Mean Corpuscular HGB Conc 31.4 g/dL (31.5-36.5); Mean Corpuscular Volume 93 fL (80-100); Mean Platelet Volume 9.9 fL (9.1-12.4); NEUTROPHILS ABSOLUTE AUTO 7.36 K/mm3 (1.96-9.15); NEUTROPHILS PERCENT AUTO 68 % (41-73); NRBC ABSOLUTE 0.03 K/mm3 (0.00-0.02); NRBC Auto 0.3 /100 WBC (0.0-0.2); Platelet Count 277 K/mm3 (150-400); RDW Coefficient Variation 13.5 % (11.7-14.2); RDW Standard Deviation 45.4 fL (35.1-46.3); Red Blood Cell Count 3.37 M/mm3 (3.80-5.20); White Blood Cell Count 10.76 K/mm3 (4.00-11.30)
[2021-06-05 04:19] LABS: Albumin, Blood 1.9 g/dL (3.4-5.0); Anion Gap 3 mmol/L (6-16); Blood Urea Nitrogen 20 mg/dL (8-24); Bun/Creatinine Ratio 41.9 (12.0-20.0); CO2, Blood 31 mmol/L (21-32); Calcium, Blood 8.3 mg/dL (8.5-10.1); Chloride, Blood 105 mmol/L (98-108); Creatinine, Blood 0.48 mg/dL (0.40-1.00); Glomerular Filtration Rate >60 (60-); Glucose, Blood 137 mg/dL (70-99); Phosphorus, Blood 2.6 mg/dL (2.5-4.9); Potassium, Blood 4.4 mmol/L (3.5-5.5); Sodium, Blood 139 mmol/L (136-145)
--- NOTE | 2021-06-05 07:00 | NUR ---
ASSUME CARE: I HAVE ASSUMED CARE OF THIS PATIENT FROM THE REELING OPERATOR RN
--- NOTE | 2021-06-05 07:03 | NUR ---
SHIFT SUMMARY: PATIENT REMAINS INTUBATED, PARALYZED, AND SEDATED. VENT SETTINGS: ACVC 25/335/16/55%. TOF IS STILL 2/4 AND BIS WAS IN THE 40'S ALL SHIFT. LUCAS STILL DRAINING YELLOW URINE AND OGT STILL IN PLACE RUNNING TF AT GOAL. NO RESIDUALS FOR THIS SHIFT. PT HAD ONE LARGE, LIQUID, BROWN BM. PROPOFOL STILL INFUSING AT 30MCG/KG/MIN, NIMBEX AT 4MCG/KG/MIN, AND FENTANYL AT 100MCG/HR. GAVE REPORT TO JESUS LOWRY.
--- NOTE | 2021-06-05 19:00 | NUR ---
ASSUME CARE NOTE: PATIENT IS INTUBATED, PARALYZED, AND SEDATED. VENT SETTINGS: ACVC 25/335/14/60% AND SATING 96%. NIMBEX INFUSING AT 1MCG/KG/MIN, PROPOFOL AT 30MCG/KG/MIN, AND FENTANYL AT 100MCG/HR. TOF IS 0/4 AT 2 POWER AND 4/4 AT 3 POWER WITH GOAL OF TITRATING THE NIMBEX OFF. BIS IS 52. SHE GRIMACES WITH ORAL CARE AND HAS A COUGH AND GAG REFLEX. HR AND BP WNL. LUCAS IN PLACE DRAINING YELLOW URINE TO GRAVITY. OGT TO TF AT GOAL OF 30ML/HR WITH NO RESIDUALS. SKIN IS COOL, DRY, AND INTACT WITH BRUISING TO THE ABDOMEN. SEE SHIFT ASSESSMENT FOR DETAILS.
--- NOTE | 2021-06-05 19:08 | NUR ---
Nimbex weaned to 1 mcg/mg/kg by the end of the day. Patient tolerating well and will continue to wean per provider. She did require one dose of PRN ativan and dilaudid for hypertension and tachycardia. 500ml bolus of NS given for hypotension pt was diuresed. PEEP reduced to 14. Report given to oncoming RN.
--- NOTE | 2021-06-05 22:52 | NUR ---
FAMILY UPDATE: UPDATED PATIENT'S AUNT, SAAD, IN REGARDS TO STATUS. SHE HAS NO QUESTIONS OR CONCERNS AT THIS TIME.
--- NOTE | 2021-06-06 00:20 | NUR ---
FENTANYL QUALITY ENG: REPLACED FENTANYL SYRINGE IN QUALITY ENG; PREVIOUS SYRINGE EMPTY SO 0ML WASTED.
[2021-06-06 03:12] LABS: BASOPHILS ABSOLUTE AUTO 0.06 K/mm3 (0.00-0.23); BASOPHILS PERCENT AUTO 1 % (0-2); EOSINOPHILS ABSOLUTE AUTO 0.08 K/mm3 (0.00-0.68); EOSINOPHILS PERCENT AUTO 1 % (0-6); Hematocrit 26.4 % (33.0-51.0); Hemoglobin 9.3 g/dL (11.5-16.0); IMMATURE GRAN ABSOLUTE AUTO 0.42 K/mm3 (0.00-0.10); IMMATURE GRAN PERCENT AUTO 5 % (0-1); LYMPHOCYTES ABSOLUTE AUTO 2.48 K/mm3 (0.84-5.20); LYMPHOCYTES PERCENT AUTO 28 % (21-46); MONOCYTES ABSOLUTE AUTO 0.51 K/mm3 (0.16-1.47); MONOCYTES PERCENT AUTO 6 % (4-13); Mean Corpuscular HGB 32.1 pg (26.0-34.0); Mean Corpuscular HGB Conc 35.2 g/dL (31.5-36.5); Mean Corpuscular Volume 91 fL (80-100); Mean Platelet Volume 10.2 fL (9.1-12.4); NEUTROPHILS ABSOLUTE AUTO 5.43 K/mm3 (1.96-9.15); NEUTROPHILS PERCENT AUTO 60 % (41-73); NRBC ABSOLUTE 0.07 K/mm3 (0.00-0.02); NRBC Auto 0.8 /100 WBC (0.0-0.2); Platelet Count 223 K/mm3 (150-400); RDW Coefficient Variation 13.6 % (11.7-14.2); RDW Standard Deviation 44.5 fL (35.1-46.3); White Blood Cell Count 8.98 K/mm3 (4.00-11.30)
[2021-06-06 03:44] LABS: Albumin, Blood 1.7 g/dL (3.4-5.0); Anion Gap 5 mmol/L (6-16); Blood Urea Nitrogen 21 mg/dL (8-24); Bun/Creatinine Ratio 44.1 (12.0-20.0); CO2, Blood 31 mmol/L (21-32); Calcium, Blood 7.1 mg/dL (8.5-10.1); Chloride, Blood 97 mmol/L (98-108); Creatinine, Blood 0.48 mg/dL (0.40-1.00); Glomerular Filtration Rate >60 (60-); Glucose, Blood 147 mg/dL (70-99); Phosphorus, Blood 2.3 mg/dL (2.5-4.9); Potassium, Blood 3.9 mmol/L (3.5-5.5); Sodium, Blood 133 mmol/L (136-145)
--- NOTE | 2021-06-06 06:21 | NUR ---
SHIFT SUMMARY: NO ACUTE OVERNIGHT EVENTS. PATIENT REMAINS INTUBATED, PARALYZED, AND SEDATED. VENT SETTINGS ARE STILL ACVC 25/335/14/60% AND PT SATING 92%. PROPOFOL INFUSING AT 30MCG/KG/MIN, NIMBEX AT 1MCG/KG/MIN, AND FENTANYL AT 100MCG/HR. T/O THE SHIFT, PT'S TOF STAYED AT 0/4 AT 3 POWER AND 4/4 AT 3 POWER WITH A BIS IN THE 40-50'S. SHE IS SLIGHTLY TACHY WITH A HR OF 105 AND BP IS WNL. LUCAS STILL IN PLACE AND 2.8L OF CLEAR YELLOW URINE DRAINED THIS SHIFT. OGT STILL RUNNING TF AT GOAL WITH NO RESIDUALS. NO BM THIS SHIFT. PHOSPHATE REPLACED PER PROTOCOL. WILL REPORT TO ONCOMING RN WHEN AVAILABLE.
--- NOTE | 2021-06-06 19:00 | NUR ---
ASSUME CARE NOTE: PATIENT INTUBATED AND SEDATED. VENT SETTINGS: ACVC 25/335/10/40%. PROPOFOL INFUSING AT 30MCG/KG/MIN AND FENTANYL 100MCG/HR. SHE OPENS EYES TO STIMULUS AND MOVES EXTREMITIES; WILL ENTERPRISE MOBILITY ARCHITECT HANDS AND NOD HEAD APPROPIATELY TO QUESTIONS. LARGE AMOUNT OF SOMETIMES BLOODY ORAL SECRETIONS. HR AND BP WNL. LUCAS DRAINING CRISTINA URINE TO GRAVITY. OGT IN PLACE RUNNING AT GOAL. BLE EDEMA NOTED. WILL APPLY SWB BECAUSE PT IS NO LONGER PARALYZED AND CAN MOVE EXTREMITIES. SEE SHIFT ASSESSMENT FOR DETAILS.
[2021-06-07 04:35] LABS: BASOPHILS ABSOLUTE AUTO 0.05 K/mm3 (0.00-0.23); BASOPHILS PERCENT AUTO 1 % (0-2); EOSINOPHILS PERCENT AUTO 1 % (0-6); Hematocrit 28.2 % (33.0-51.0); IMMATURE GRAN ABSOLUTE AUTO 0.24 K/mm3 (0.00-0.10); IMMATURE GRAN PERCENT AUTO 3 % (0-1); LYMPHOCYTES ABSOLUTE AUTO 2.73 K/mm3 (0.84-5.20); LYMPHOCYTES PERCENT AUTO 32 % (21-46); MONOCYTES ABSOLUTE AUTO 0.49 K/mm3 (0.16-1.47); MONOCYTES PERCENT AUTO 6 % (4-13); Mean Corpuscular HGB 32.3 pg (26.0-34.0); Mean Corpuscular HGB Conc 35.5 g/dL (31.5-36.5); Mean Corpuscular Volume 91 fL (80-100); Mean Platelet Volume 10.1 fL (9.1-12.4); NEUTROPHILS ABSOLUTE AUTO 4.95 K/mm3 (1.96-9.15); NEUTROPHILS PERCENT AUTO 58 % (41-73); NRBC ABSOLUTE 0.11 K/mm3 (0.00-0.02); NRBC Auto 1.3 /100 WBC (0.0-0.2); Platelet Count 198 K/mm3 (150-400); RDW Standard Deviation 45.2 fL (35.1-46.3); White Blood Cell Count 8.56 K/mm3 (4.00-11.30)
[2021-06-07 04:50] LABS: Magnesium, Blood 2.2 mg/dL (1.6-2.4)
[2021-06-07 05:00] LABS: Anion Gap 4 mmol/L (6-16); Blood Urea Nitrogen 17 mg/dL (8-24); Bun/Creatinine Ratio 40.8 (12.0-20.0); CO2, Blood 33 mmol/L (21-32); Calcium, Blood 7.2 mg/dL (8.5-10.1); Chloride, Blood 94 mmol/L (98-108); Creatinine, Blood 0.42 mg/dL (0.40-1.00); Glomerular Filtration Rate >60 (60-); Glucose, Blood 159 mg/dL (70-99); Phosphorus, Blood 2.8 mg/dL (2.5-4.9); Potassium, Blood 3.7 mmol/L (3.5-5.5); Sodium, Blood 131 mmol/L (136-145)
--- NOTE | 2021-06-07 06:39 | NUR ---
SHIFT SUMMARY: NO ACUTE OVERNIGHT EVENTS. PATIENT STILL INTUBATED AND SEDATED. VENT SETTINGS: ACVC 25/335/10/50%. SHE OPENS HER EYES TO STIMULUS, MANAGER STRATEGIC ALLIANCES HANDS, NODS HEAD TO QUESTIONS, AND MOVES EXTREMITIES. SHE DESATS, BECOMES TACHYCARDIC, AND HYPERTENSIVE WITH TURNS BUT RECOVERS AFTER SOME TIME. STILL HAS LARGE AMOUNTS OF BLOODY ORAL SECRETIONS AND A SMALL AMOUNT OF THICK, PINKISH/FAN ETT SECRETIONS. LUCAS STILL DRAINING CRISTINA URINE WITH 3.5L OUTPUT. OGT STILL RUNNING TF AT GOAL. NO BM THIS SHIFT. SWB REMAIN IN PLACE. WILL REPORT TO ONCOMING RN ONCE AVAILABLE.
--- NOTE | 2021-06-07 10:09 | NUR ---
CARE ASSUMED ASSESSMENTS COMPLETED, PT INTUBATED, SEDATED WITH PROPOFOL 30MCG/KG/MIN AND FENTANYL 100MCG/HR. VENT AC 25, Vt 335, PEEP 10, FIO2 60%, SPO2 LOW 90'S, PEAK PRESSURE LOW 20'S. PT COUGHING, RR 34, HR 140 SIT, BP STABLE, PT MEDICATED WITH ATIVAN AND DILAUDID, THEN SETTLED. LS COARSE ON R, DIMINISHED T/O, MODERATE FAN ETT SECRETIONS WITH BLOOD STREAKS. NO BLOODY ORAL SECRETIONS NOTED AT THIS TIME. PT WAKES TO VOICE, CAN FOLLOW SOME COMMANDS, TRACKS, DOES NOT ANSWER QUESTIONS. VERY WEAK BUT GIFFORD. SWB IN PLACE. PT REPOSITIONED, AM MEDS ADMINISTERED. LUCAS PATENT AND DRAINING, GOOD OUTPUT WITH LASIX.
--- NOTE | 2021-06-07 16:49 | NUR ---
SEDATION VACATION FENTANYL DECREASED TO 50MCG/HR PER ORDERS. PROPOFOL OFF FOR SEDATION VACATION, PT ABLE TO OPEN EYES TO VOICE, TRACK, ANSWER YES/NO QUESTIONS, FOLLOW COMMANDS, AND GIFFORD. PT VERY WEAK BUT COOPERATIVE. PROPOFOL RESUMED AFTER SEDATION VACATION AT 30MCG/KG/MIN.
--- NOTE | 2021-06-07 18:05 | NUR ---
END OF SHIFT PT RESTING QUIETLY AT THIS TIME, HAS OCCASIONAL COUGHING SPELLS AND TACHYCARDIA BUT RESPONDS WELL TO ATIVAN FOR THESE SYMPTOMS. LS DIMINISHED T/O, NO COARSE SOUNDS THIS EVENING, ETT SECRETIONS SMALL, THICK, WHITE, NO BLOOD IN ETT SECRETIONS OR ORAL SECRETIONS TODAY. VENT AC 20, Vt 335, PEEP 10, FIO2 60%, SPO2 92%, RR 20'S, PEAK PRESSURE 18. HR 105 SIT, BP STABLE. BEDBATH GIVEN, LINENS CHANGED, SKIN TO BACK INTACT, NO AREAS OF UNRELIEVED PRESSURE NOTED. PLAN FOR TRACH TOMORROW, WILL PASS ON TO NEXT SHIFT TO HOLD LOVENOX AND TF PER ORDERS.
--- NOTE | 2021-06-07 19:00 | NUR ---
ASSUME CARE NOTE: PT INTUBATED AND SEDATED IN SWB. SHE OPENS HER EYES TO STIMULI AND MOVES EXTREMITIES. VENT SETTINGS: ACVC 20/335/10/60%. HR AND BP WNL. PROPOFOL INFUSING AT 30MCG/KG/HR AND FENTANYL AT 50MCG/HR. LUCAS IS DRAINING CRISTINA URINE TO GRAVITY. OGT IN PLACE RUNNING TF AT GOAL WITH NO RESIDUALS. SKIN IS WARM, DRY, AND INTACT. SEE SHIFT ASSESSMENT FOR DETAILS.
--- NOTE | 2021-06-07 22:35 | NUR ---
FAMILY UPDATE: PT'S AUNT, SAAD, CALLED FOR UPDATE. SHE HAS NO QUESTIONS OR CONCERNS AT THIS TIME BUT REQUESTS A CALL BEFORE PT IS TAKEN FOR TRACH SO THAT SHE MAY PRAY FOR HER. WILL PASS MESSAGE TO JESUS LOWRY.
[2021-06-08 03:52] LABS: BASOPHILS ABSOLUTE AUTO 0.05 K/mm3 (0.00-0.23); BASOPHILS PERCENT AUTO 0 % (0-2); EOSINOPHILS ABSOLUTE AUTO 0.14 K/mm3 (0.00-0.68); EOSINOPHILS PERCENT AUTO 1 % (0-6); Hematocrit 29.4 % (33.0-51.0); IMMATURE GRAN ABSOLUTE AUTO 0.17 K/mm3 (0.00-0.10); IMMATURE GRAN PERCENT AUTO 2 % (0-1); LYMPHOCYTES ABSOLUTE AUTO 2.32 K/mm3 (0.84-5.20); LYMPHOCYTES PERCENT AUTO 20 % (21-46); MONOCYTES ABSOLUTE AUTO 0.54 K/mm3 (0.16-1.47); MONOCYTES PERCENT AUTO 5 % (4-13); Mean Corpuscular Volume 91 fL (80-100); NEUTROPHILS ABSOLUTE AUTO 8.27 K/mm3 (1.96-9.15); NEUTROPHILS PERCENT AUTO 72 % (41-73); NRBC ABSOLUTE 0.09 K/mm3 (0.00-0.02); NRBC Auto 0.8 /100 WBC (0.0-0.2); Platelet Count 202 K/mm3 (150-400); RDW Coefficient Variation 14.2 % (11.7-14.2); Red Blood Cell Count 3.23 M/mm3 (3.80-5.20); White Blood Cell Count 11.49 K/mm3 (4.00-11.30)
[2021-06-08 04:09] LABS: Magnesium, Blood 2.4 mg/dL (1.6-2.4)
[2021-06-08 04:22] LABS: Anion Gap 6 mmol/L (6-16); Blood Urea Nitrogen 15 mg/dL (8-24); Bun/Creatinine Ratio 32.1 (12.0-20.0); CO2, Blood 34 mmol/L (21-32); Calcium, Blood 7.9 mg/dL (8.5-10.1); Chloride, Blood 94 mmol/L (98-108); Creatinine, Blood 0.47 mg/dL (0.40-1.00); Glomerular Filtration Rate >60 (60-); Glucose, Blood 132 mg/dL (70-99); Phosphorus, Blood 3.6 mg/dL (2.5-4.9); Potassium, Blood 4.1 mmol/L (3.5-5.5); Sodium, Blood 134 mmol/L (136-145)
--- NOTE | 2021-06-08 06:27 | NUR ---
SHIFT SUMMARY: PT REMAINS INTUBATED AND SEDATED IN SWB. VENT SETTINGS: 20/335/10/70%. SHE OPENS EYES SPONT AND MOVES EXTREMITIES. HR AND BP WNL. LUCAS CONTINUES TO DRAIN CRISTINA URINE TO GRAVITY. OGT IS CLAMPED AND TF HAVE BEEN OFF SINCE 0000. PROPOFOL 30MCG/KG/HR AND FENTANYL 50MCG/HR STILL INFUSING. WILL REPORT TO ONCOMING RN WHEN AVAILABLE.
--- NOTE | 2021-06-08 09:58 | NUR ---
CARE ASSUMED/SEDATION VACATION ASSESSMENTS COMPLETED, PT REMAINS SEDATED WITH FENTANYL 50MCG/HR AND PROPOFOL 30MCG/KG/MIN, VENT AC 20, Vt 335, FIO2 70%, PEEP 10. RR 20'S, PEAK PRESSURE LOW 20'S, SPO2 LOW 90'S. LS COARSE, DIMINISHED, SMALL AMOUNT WHITE THICK SECRETIONS FROM ETT. SEDATION VACATION COMPLETED, PT WAKES, FOLLOWS COMMANDS, TRACKS, ABLE TO ANSWER YES/NO QUESTIONS. RESEDATED WHEN PT BECAME TACHYCARDIC AND BEGAN COUGHING, PT SETTLED AFTER SEDATION WAS RESUMED. LUCAS PATENT AND DRAINING, BT ACTIVE, ABD SOFT. HR SIT 100-120, BP STABLE, PERIPHERAL PULSES FAINT IN ALL EXTREMS, TRACE EDEMA TO LE'S, SKIN WARM AND DRY. REDNESS NOTED TO BACK, SKIN INTACT AND WITHOUT RAISED AREAS OR BLISTERS. SPOKE WITH DR. DAVIS'S OFFICE REGARDING PLANS FOR TRACH, PT ON SCHEDULE FOR 06/09/[address] AT [address] ELAINE NOTIFIED, TUBE FEEDING RESUMED, PO MEDS AND LOVENOX ADMINISTERED PER ORDERS. WILL PLAN TO HOLD ADDITIONAL LOVENOX AND CLAMP OGT AT MIDNIGHT FOR TRACH TOMORROW MORNING. PT'S AUNT UPDATED ON PLAN.
--- NOTE | 2021-06-08 13:41 | NUR ---
Case conference per ICU IDT meeting for current status and goals of care. Pt remains ventilated with trach and tentative plan for [facility] rehab facility that can support respiratory care. [facility] referral pending per internet security specialist.
--- NOTE | 2021-06-08 19:23 | NUR ---
END OF SHIFT PT HAD UNEVENTFUL DAY, REMAINED STATUS QUO. PROPOFOL 30MCG, FENTANYL 50MCG/HR, PT REMAINS MODERATELY SEDATED, ABLE TO OPEN EYES AND MOVE EXTREMS BUT DOES NOT TRACK OR FOLLOW COMMANDS. LS CLEAR, DIMINISHED T/O, SCANT SECRETIONS FROM ETT. VENT AC 20, Vt 335, FIO2 60%, PEEP 10, SPO2 94%, RR 20'S, PEAK PRESSURE 22. HR 90'S SINUS, BP SOFT WITH MAP >65. TF INFUSING PER ORDERS, WILL REPORT TO ONCOMING SHIFT TO STOP TF AT MIDNIGHT AND HOLD LOVENOX IN PREPARATION FOR TRACH PLACEMENT TOMORROW MORNING. SKIN TO PT'S BACK REMAINS SLIGHTLY RED, HAS NOT APPEARED TO SPREAD AND IS WHEEL TRUER THAN THIS AM. PT'S AUNT IN THIS EVENING TO VISIT, UPDATED.
--- NOTE | 2021-06-08 19:31 | NUR ---
ASSUMED CARE OF PT AT 1900, REPORT RECEIVED FROM SHIRLEY LOWRY. PT INTUBATED AND SEDATED. VENT SETTINGS AC 20/335/10/60% WITH SPO2 94%. PROPOFOL INFUSING AT 30 MCG/KG/MIN AND FENTANYL AT 50 MCG/HR. PT WITH SPONTANEOUS EYE OPENING, FOLLOWING COMMANDS. HR 80'S SINUS ON MONITOR, SBP 80'S. TF RUNNING VHP VIA OGT AT GOAL RATE OF 30 ML/HR WITH 30 Q4H WATER FLUSHES. ABD SOFT TO PALPATE, NO INDICATION OF DISCOMFORT. PULSES WEAK IN ALL EXTREMITIES. PUPILS EQUAL AND REACTIVE. LUCAS DRAINING CLEAR YELLOW URINE TO GRAVITY.
[2021-06-09 04:27] LABS: BASOPHILS ABSOLUTE AUTO 0.04 K/mm3 (0.00-0.23); BASOPHILS PERCENT AUTO 1 % (0-2); EOSINOPHILS ABSOLUTE AUTO 0.19 K/mm3 (0.00-0.68); EOSINOPHILS PERCENT AUTO 2 % (0-6); Hematocrit 30.6 % (33.0-51.0); Hemoglobin 10.2 g/dL (11.5-16.0); IMMATURE GRAN ABSOLUTE AUTO 0.09 K/mm3 (0.00-0.10); IMMATURE GRAN PERCENT AUTO 1 % (0-1); LYMPHOCYTES ABSOLUTE AUTO 2.06 K/mm3 (0.84-5.20); LYMPHOCYTES PERCENT AUTO 26 % (21-46); MONOCYTES PERCENT AUTO 5 % (4-13); Mean Corpuscular HGB 30.6 pg (26.0-34.0); Mean Corpuscular HGB Conc 33.3 g/dL (31.5-36.5); Mean Corpuscular Volume 92 fL (80-100); Mean Platelet Volume 9.7 fL (9.1-12.4); NEUTROPHILS ABSOLUTE AUTO 5.15 K/mm3 (1.96-9.15); NEUTROPHILS PERCENT AUTO 65 % (41-73); NRBC ABSOLUTE 0.03 K/mm3 (0.00-0.02); NRBC Auto 0.4 /100 WBC (0.0-0.2); Platelet Count 205 K/mm3 (150-400); RDW Coefficient Variation 14.6 % (11.7-14.2); Red Blood Cell Count 3.33 M/mm3 (3.80-5.20); White Blood Cell Count 7.93 K/mm3 (4.00-11.30)
[2021-06-09 04:42] LABS: Albumin, Blood 2.1 g/dL (3.4-5.0); Anion Gap 6 mmol/L (6-16); Blood Urea Nitrogen 22 mg/dL (8-24); Bun/Creatinine Ratio 44.1 (12.0-20.0); CO2, Blood 34 mmol/L (21-32); Calcium, Blood 8.5 mg/dL (8.5-10.1); Chloride, Blood 96 mmol/L (98-108); Glomerular Filtration Rate >60 (60-); Glucose, Blood 149 mg/dL (70-99); Phosphorus, Blood 3.9 mg/dL (2.5-4.9); Potassium, Blood 3.8 mmol/L (3.5-5.5); Sodium, Blood 136 mmol/L (136-145)
--- NOTE | 2021-06-09 06:07 | NUR ---
SHIFT SUMMARY PT REMAINS INTUBATED AND SEDATED. NO CHANGE TO VENT SETTINGS, CONTINUE AT AC 20/335/10/60% MAINTAINING SPO2 >90%. PROPOFOL AT 30 MCG/KG/MIN AND FENTANYL AT 50 MCG/HR. PT OPENS EYES SPONTANEOUSLY, MOVES ALL EXTREMITIES AND FOLLOWING COMMANDS. PRN ATIVAN GIVEN ONCE THIS SHIFT FOR AGITATION. LUNGS CLEAR WITH DIM BASES, PT WITH FREQUENT COUGHING. SMALL AMOUNT OF THICK WHITE SECRETIONS VIA ETT, MODERATE AMOUNT OF ORAL SECRETIONS. TF TURNED OFF AT MIDNIGHT FOR POSSIBLE TRACH PLACEMENT THIS AM.
--- NOTE | 2021-06-09 07:15 | NUR ---
ASSUMED CARE: I HAVE ASSUMED CARE OF THIS PATIENT. SHE IS CURRENTLY SEDATED AND ON THE VENTILATOR.
--- NOTE | 2021-06-09 08:22 | NUR ---
06/09/21 0822 Alysha Moreno PATIENT IS ON SCHEDULED ANTIBIOTICS
--- NOTE | 2021-06-09 18:12 | NUR ---
Pt taken to OR this morning for trach placement. ETT and OG were removed and pt returned with a 6.0 Shiley. Upon return to the ICU, she was tachycardic and hypertensive. She was given a total of 4 mg of PRN atavan and and 100 mcg of PRN fentanyl; pt recovered well. Trach site oozing serosenguinous fluid. FiO2 weaned down to 50% after trach placement. PEEP 10/TV 335. Dobhoff was attempted by this RN as well as charge, however the tube became lodged in the trachia; RT had to assist with cuff deflation and NG tube dislodgement. Dr Watson aware and instructed RN to forgo NG tube placement until tomorrow 06/10/21. IVF were requested, but not indicated per physician. No BM today. Lovenox not yet resumed. Will continue to monitor until shift handoff.
[2021-06-10 04:27] LABS: BASOPHILS ABSOLUTE AUTO 0.04 K/mm3 (0.00-0.23); BASOPHILS PERCENT AUTO 1 % (0-2); EOSINOPHILS ABSOLUTE AUTO 0.25 K/mm3 (0.00-0.68); EOSINOPHILS PERCENT AUTO 3 % (0-6); Hematocrit 31.1 % (33.0-51.0); Hemoglobin 9.8 g/dL (11.5-16.0); IMMATURE GRAN ABSOLUTE AUTO 0.08 K/mm3 (0.00-0.10); IMMATURE GRAN PERCENT AUTO 1 % (0-1); LYMPHOCYTES ABSOLUTE AUTO 1.69 K/mm3 (0.84-5.20); LYMPHOCYTES PERCENT AUTO 20 % (21-46); MONOCYTES ABSOLUTE AUTO 0.52 K/mm3 (0.16-1.47); MONOCYTES PERCENT AUTO 6 % (4-13); Mean Corpuscular HGB 29.3 pg (26.0-34.0); Mean Corpuscular HGB Conc 31.5 g/dL (31.5-36.5); Mean Corpuscular Volume 93 fL (80-100); Mean Platelet Volume 9.7 fL (9.1-12.4); NEUTROPHILS ABSOLUTE AUTO 5.88 K/mm3 (1.96-9.15); NEUTROPHILS PERCENT AUTO 70 % (41-73); Platelet Count 203 K/mm3 (150-400); RDW Coefficient Variation 14.7 % (11.7-14.2); RDW Standard Deviation 48.9 fL (35.1-46.3); Red Blood Cell Count 3.35 M/mm3 (3.80-5.20); White Blood Cell Count 8.46 K/mm3 (4.00-11.30)
[2021-06-10 04:44] LABS: Anion Gap 5 mmol/L (6-16); Blood Urea Nitrogen 20 mg/dL (8-24); Bun/Creatinine Ratio 34.7 (12.0-20.0); CO2, Blood 34 mmol/L (21-32); Calcium, Blood 8.8 mg/dL (8.5-10.1); Chloride, Blood 99 mmol/L (98-108); Creatinine, Blood 0.58 mg/dL (0.40-1.00); Glomerular Filtration Rate >60 (60-); Glucose, Blood 116 mg/dL (70-99); Potassium, Blood 3.5 mmol/L (3.5-5.5); Sodium, Blood 138 mmol/L (136-145)
--- NOTE | 2021-06-10 06:17 | NUR ---
PT REMAINS SEDATED ON PROPOFOL AT 45MCG/KG/MIN AND FENTANYL AT 50MCG/HR. SHE IS MINIMALLY ABLE TO FOLLOW COMMANDS, TRIES TO OPEN EYES TO HER NAME AND WILL TURN HEAD. VENT SETTINGS UNCHANGED AC/VC 20/335/10/50% WITH SATS >92%. LUNGS CLEAR AND DIMINISHED. BLOODY SECRETIONS VIA TRACH SUCTIONING. 6.0 TRACH CONTINUES TO OOZE SANGUINEOUS FLUID. HR REMAINED ST IN 100-120'S. BP STABLE, MAP >65. NPO, NO INSULIN COVERAGE NEEDED T/O SHIFT. LUCAS DRAINING TO GRAVITY, 400ML OUT, DARK YELLOW CLOUDY URINE. FEBRILE WITH TMAX 99.6. WILL REPORT TO ONCOMING RN.
--- NOTE | 2021-06-10 07:30 | NUR ---
ASSUMED CARE: I HAVE ASSUMED CARE OF PATIENT AT THIS TIME.
--- NOTE | 2021-06-10 19:25 | NUR ---
PT HAD UNEVENTFUL DAY. EXAM IS UNCHANGED SHE DOES NOT HAVE AN OG OR NG IN PLACE. IR PLANNED FOR G TUBE PLACEMENT ON 06/11/21. AUNT SAAD AT BEDSIDE TODAY AND BROUGHT IN POA PAPERWORK. PT CONTINUES ON 45 MCG/KG/MIN. FIO2 REDUCED TO 45%.
--- NOTE | 2021-06-10 21:36 | NUR ---
ASSUMED CARE OF PT AT 1900, REPORT RECEIVED FROM CECILIA LOWRY. PT VENTED VIA TRACH AND SEDATED. VENT SETTINGS AC 20/335/10/45% WITH SPO2 >90%. PROPOFOL INFUSING AT 45 MCG/KG/MIN AND FENTANYL AT 50 MCG/HR. PT GRIMACING AND MOVING ALL EXTREMITIES. PRN ATIVAN GIVEN FOR COMFORT. LUCAS DRAINING DARK YELLOW URINE WITH SEDIMENT TO GRAVITY. CURRENTLY NPO. HR 100-120'S SINUS ON MONITOR, SBP 90-100'S.
--- NOTE | 2021-06-11 05:47 | NUR ---
SHIFT SUMMARY PT REMAINS VENTED VIA TRACH AND SEDATED. VENT SETTINGS UNCHANGED THIS SHIFT, AC 20/335/10/45% MAINTAINING SPO2 >90%. LUNGS CLEAR WITH DIM BASES, SMALL AMOUNT OF THICK FAN BLOOD STREAKED SECRETIONS VIA TRACH. OOZING CONTINUES AROUND TRACH SITE. PT MOVING ALL EXTREMITIES, FOLLOWING SOME COMMANDS. BECOMES TEARFUL AT TIMES, PRN ATIVAN GIVEN TWICE THIS SHIFT. PT REMAINS NPO. ACTIVE BOWEL TONES, ABD SOFT WHEN PALPATED NO SIGN OF DISCOMFORT. LUCAS PATENT AND DRAINING CRISTINA COLORED URINE WITH SEDIMENT TO GRAVITY. WILL CONTINUE TO MONITOR UNTIL REPORT GIVEN TO ONCOMING RN.
[2021-06-11 08:20] LABS: BASOPHILS ABSOLUTE AUTO 0.03 K/mm3 (0.00-0.23); BASOPHILS PERCENT AUTO 0 % (0-2); EOSINOPHILS ABSOLUTE AUTO 0.41 K/mm3 (0.00-0.68); EOSINOPHILS PERCENT AUTO 6 % (0-6); Hematocrit 32.1 % (33.0-51.0); Hemoglobin 10.3 g/dL (11.5-16.0); IMMATURE GRAN ABSOLUTE AUTO 0.05 K/mm3 (0.00-0.10); IMMATURE GRAN PERCENT AUTO 1 % (0-1); LYMPHOCYTES ABSOLUTE AUTO 1.72 K/mm3 (0.84-5.20); LYMPHOCYTES PERCENT AUTO 24 % (21-46); MONOCYTES ABSOLUTE AUTO 0.59 K/mm3 (0.16-1.47); MONOCYTES PERCENT AUTO 8 % (4-13); Mean Corpuscular HGB 29.3 pg (26.0-34.0); Mean Corpuscular HGB Conc 32.1 g/dL (31.5-36.5); Mean Corpuscular Volume 92 fL (80-100); Mean Platelet Volume 9.4 fL (9.1-12.4); NEUTROPHILS ABSOLUTE AUTO 4.43 K/mm3 (1.96-9.15); NEUTROPHILS PERCENT AUTO 61 % (41-73); Platelet Count 193 K/mm3 (150-400); RDW Coefficient Variation 14.7 % (11.7-14.2); RDW Standard Deviation 49.2 fL (35.1-46.3); Red Blood Cell Count 3.51 M/mm3 (3.80-5.20); White Blood Cell Count 7.23 K/mm3 (4.00-11.30)
[2021-06-11 08:41] LABS: Anion Gap 7 mmol/L (6-16); Blood Urea Nitrogen 18 mg/dL (8-24); Bun/Creatinine Ratio 30.6 (12.0-20.0); CO2, Blood 30 mmol/L (21-32); Calcium, Blood 8.8 mg/dL (8.5-10.1); Chloride, Blood 102 mmol/L (98-108); Creatinine, Blood 0.59 mg/dL (0.40-1.00); Glomerular Filtration Rate >60 (60-); Glucose, Blood 143 mg/dL (70-99); Potassium, Blood 3.1 mmol/L (3.5-5.5); Sodium, Blood 139 mmol/L (136-145)
--- NOTE | 2021-06-11 09:20 | NUR ---
ASSUMED CARE THIS AM PT. PROPOFOL INFUSING AT 50MCG THIS AM, PLACED ON STAND BY FOR NEURO ASSESSMENT. PT. VERY TEARFUL. ABLE TO FOLLOW COMMANDS, GIFFORD, VERY WEAK. COPIOUS AMOUNT OF SECREATIONS FROM UNDERNEATH TRACH. GAUZE PLACED TO PROTECT SKIN. SUTURES REMAIN IN PLACE. PT REMAINS ON VENT AC 20, TV 330, PEEP 10, 40%FIO2. PT. REMAINS ON FENTANYL GTT IFUSING AT 50MCG/HR FOR PAIN CONTROL. PT. SHAKES HEAD NO TO PAIN THIS AM. PT. LUCAS IN PLACE DRAINING TO GRAVITY. PICC LINE TO RODRIGUEZ, DRESSING CDI. PLANS FOR PEG TUBE PLACEMENT THIS AM, LOVENOX HELD PER DR. NUNEZ. PT. ORAL MEDS HELD DUE TO NO ACCESS. DR. GOMEZ. HR BEGAN TO ELEVATE AND PT COUGHING CONTINUOUSLY ON VENT. BP ELEVATING. PROPOFOL RESTARTED AT THIS TIME.
--- NOTE | 2021-06-11 10:42 | NUR ---
FAMILY UPDATED ON PT. CONDITION. PT TO RADIOACTIVITY TECHNICIAN AT THIS TIME FOR PEG TUBE PLACEMENT.
--- NOTE | 2021-06-11 12:39 | NUR ---
PT RETURNS FROM DRAGLINE ENGINEER POST PEG TUBE PLACEMENT. PER DRAGLINE ENGINEER STAFF PROCEDURE WENT WELL. SITE WNL.
--- NOTE | 2021-06-11 17:28 | NUR ---
SHIFT SUMMARY: PT REMAINS ON VENTILATOR WITH PROPOFOL FOR SEDATION. CURRENTLY INFUSING AT 45 MCG/KH/HR. WAS ABLE TO FOLLOW COMMANDS ON SEDATION VACATION YET TEARFUL. PATIENT WENT FOR PEG TUBE PLACEMENT IN INFORMATION SYSTEMS MANAGER. REMAINS CLAMPED, OK TO START TUBE FEEDING TOMORROW PER MD ORDER. ABDOMEN REMAINS SOFT. TRACH CARE FREQUENTLY DONE THROUGHOUT DAY. INNER CANULA CHANGE THIS SHIFT. FIO2 TITRATED DOWN TO 35%. PT TOLERATING WELL. VSS AT THIS TIME. WILL REPORT TO ONCOMING RN.
--- NOTE | 2021-06-11 19:00 | NUR ---
ASSUME CARE NOTE: PT LYING IN BED AND APPEARS TO BE RESTING COMFORTABLY IN SWB. SHE OPENS TO HER EYES TO PAIN AND CAN GIFFORD. SHE IS TRACH TO VENT; SETTINGS: ACVC 335/10/35%. VS WNL. LUCAS DRAINING YELLOW URINE TO GRAVITY. PEG TUBE IN PLACE AND CLAMPED. GENERALIZED RASH NOTED TO AREAS OF SKIN THAT FABRIC IS TOUCHING. SEE SHIFT ASSESSMENT FOR DETAILS.
--- NOTE | 2021-06-11 21:06 | NUR ---
UPDATE: BLOOD SUGAR PATIENT'S BLOOD SUGAR IS 101; PREVIOUSLY WAS 146. CALLED DR. OBANDO TO SEE ABOUT GIVING SEMGLEE 45UNITS AND POSSIBLY STARTING IV GLUCOSE UNTIL ABLE TO START TUBE FEEDS TOMORROW. DR. OBANDO STATES TO ONLY GIVE 10UNITS OF SEMGLEE TONIGHT AND START D5 1/2NS 1L AT 75ML/HR.
[2021-06-12 04:27] LABS: BASOPHILS ABSOLUTE AUTO 0.03 K/mm3 (0.00-0.23); BASOPHILS PERCENT AUTO 0 % (0-2); EOSINOPHILS ABSOLUTE AUTO 0.44 K/mm3 (0.00-0.68); EOSINOPHILS PERCENT AUTO 6 % (0-6); Hematocrit 27.6 % (33.0-51.0); Hemoglobin 9.9 g/dL (11.5-16.0); IMMATURE GRAN ABSOLUTE AUTO 0.03 K/mm3 (0.00-0.10); IMMATURE GRAN PERCENT AUTO 0 % (0-1); LYMPHOCYTES ABSOLUTE AUTO 1.24 K/mm3 (0.84-5.20); LYMPHOCYTES PERCENT AUTO 16 % (21-46); MONOCYTES ABSOLUTE AUTO 0.44 K/mm3 (0.16-1.47); MONOCYTES PERCENT AUTO 6 % (4-13); Mean Corpuscular HGB 33.1 pg (26.0-34.0); Mean Corpuscular HGB Conc 35.9 g/dL (31.5-36.5); Mean Corpuscular Volume 92 fL (80-100); Mean Platelet Volume 9.9 fL (9.1-12.4); NEUTROPHILS ABSOLUTE AUTO 5.54 K/mm3 (1.96-9.15); NEUTROPHILS PERCENT AUTO 72 % (41-73); Platelet Count 183 K/mm3 (150-400); RDW Coefficient Variation 14.4 % (11.7-14.2); RDW Standard Deviation 48.6 fL (35.1-46.3); Red Blood Cell Count 2.99 M/mm3 (3.80-5.20); White Blood Cell Count 7.72 K/mm3 (4.00-11.30)
[2021-06-12 04:45] LABS: Magnesium, Blood 1.8 mg/dL (1.6-2.4)
[2021-06-12 04:56] LABS: Albumin, Blood 1.7 g/dL (3.4-5.0); Anion Gap 8 mmol/L (6-16); Blood Urea Nitrogen 13 mg/dL (8-24); CO2, Blood 26 mmol/L (21-32); Calcium, Blood 6.5 mg/dL (8.5-10.1); Chloride, Blood 93 mmol/L (98-108); Creatinine, Blood 0.48 mg/dL (0.40-1.00); Glomerular Filtration Rate >60 (60-); Glucose, Blood 558 mg/dL (70-99); Phosphorus, Blood 2.6 mg/dL (2.5-4.9); Potassium, Blood 2.9 mmol/L (3.5-5.5); Sodium, Blood 127 mmol/L (136-145)
[2021-06-12 06:18] LABS: Alanine Aminotransfer (ALT/SGP 24 U/L (12-78); Albumin, Blood 2.2 g/dL (3.4-5.0); Albumin/Globulin Ratio 0.6 (0.8-1.8); Alk Phos 51 U/L (50-136); Aspartate Aminotrans (AST/SGOT 23 U/L (12-37); Bilirubin, Total 0.7 mg/dL (0.1-1.0); Blood Urea Nitrogen 16 mg/dL (8-24); Bun/Creatinine Ratio 30.4 (12.0-20.0); CO2, Blood 30 mmol/L (21-32); Chloride, Blood 101 mmol/L (98-108); Creatinine, Blood 0.53 mg/dL (0.40-1.00); Globulin, Blood 3.9 g/dL (2.2-4.0); Glomerular Filtration Rate >60 (60-); Glucose, Blood 160 mg/dL (70-99); Phosphorus, Blood 3.3 mg/dL (2.5-4.9); Potassium, Blood 3.1 mmol/L (3.5-5.5); Total Protein, Blood 6.1 g/dL (6.4-8.2)
[2021-06-12 06:19] LABS: Anion Gap 7 mmol/L (6-16); Calcium, Blood 8.7 mg/dL (8.5-10.1); Sodium, Blood 138 mmol/L (136-145)
--- NOTE | 2021-06-12 06:37 | NUR ---
SHIFT SUMMARY: PATIENT REMAINS SEDATED WITH TRACH TO VENT IN SWB. SHE OPENS HER EYES TO STIMULUS AND CAN GIFFORD. SHE IS TACHCARDIC AT 117 AND SBP OF 110. VENT SETTINGS: ACVC 20/335/10/30%. TRACH CONTINUES TO OOZE LARGE AMOUNT OF SECRETIONS. LUCAS STILL DRAINING DARK YELLOW URINE TO GRAVITY. G-TUBE IS STILL CLAMPED. NO BM THIS SHIFT. FENTANYL STILL INFUSING AT 50MCG/HR AND PROPOFOL AT 45MCG/KG/MIN. D5 1/2NS IS INFUSING AT 75ML/HR. WILL REPORT TO ONCOMING RN WHEN AVAILABLE.
--- NOTE | 2021-06-12 08:25 | NUR ---
REPORT RECIEVED FROM CLOTH PIECER RN. DOING ASSESSEMENT. PATIENT IS SEDATED ON PROPOFOL GTT AT 45 MCG/KG/MIN AND FENTANYL GTT AT 50 MCG/HR. AT THIS POINT SHE IS SEDATED. SHE DOES COUGH AND GAG WITH ORAL CARE. LIM[place] 7 AND BRISK. GIFFORD X4 TO TOUCH. SHE WAS BOOSTED UP IN BED AND TURNED TO HER LEFT SIDE WITH CEILING LIFT. LUNGS SOUNDS ARE A CLEAR/DIM. HER VENT SETTINGS VC PEEP 10, 30% FIO2, RATE OF 20. BOWEL TONES HYPO ACTIVE. NO BM YET. HAS LUCAS CATH, CANISTER HAS OLD SEDIMENT IN IT, OTHERWISE URINE APPEARS CLEAR AND YELLOW. PEDAL PULSES PER DOPPLER. NO EDEMA NOTED. MINIMAL ORAL SECRETIONS, ORAL CARE DONE. DOES HAVE COPIOUS TRACH SECRETIONS AROUND INSERTION SITE. NEW PEG SITE LOOKS GOOD. SHOULD RESTART TF TODAY AT SOME POINT.
[2021-06-12 12:05] LABS: Percent Saturation 13.3 % (15.0-50.0)
--- NOTE | 2021-06-12 17:00 | NUR ---
PATIENT OFF OF PROPOFOL GTT AND WILL BE TAKEN OFF FENTANYL GTT TOO. SHE IS RECIEVING PRN ATIVAN AND FENTANYL IVP TO KEEP HER COMFORTABLE. HER RESTRAINTS HAVE BEEN REMOVED. HER VENT SETTING WERE CHANGED AROUND 1300 TO HELP HER BREATHE WITH VENTILATOR EASIER PER RT. CHANGED TO PS PEEP 10, FIO2 50%. SHE SEEMS TO BE TOLERATING THE VENT MUCH BETTER SINCE CHANGES WERE MADE. SHE HAS BEEN TURNED Q2 HR, ORAL CARE Q4 HR. SHE HAD A FULL BATH WITH LINEN CHANGE AT 1600. HER TF WAS RESTARTED BACK ON VITAL HIGH PROTIEN TF AT 25 ML/HR GOAL RATE 30 ML/HR. WATER FLUSHES 30 ML Q4 HR, RESIDUAL CHECKS Q4.
--- NOTE | 2021-06-12 19:00 | NUR ---
ASSUME CARE NOTE PT IS TRACH TO VENT WITH SETTING SPONT 12/10 50%. SHE IS AWAKE, ORIENTED TO SELF, FOLLOWS COMMANDS, ANSWERS YES AND NO QUESTIONS, AND GIFFORD. HR IS 115-130 AND BP IS WNL. ONLY A TKO IS INFUSING. LUCAS IS DRAINING YELLOW CLOUDY URINE. G-TUBE RUNNING TUBE FEEDS AT GOAL. SKIN IS FLUSHED AND WARM WITH GENERALZIED RASH. SEE SHIFT ASSESSMENT FOR DETAILS.
--- NOTE | 2021-06-12 22:36 | NUR ---
UPDATE: FAMILY UPDATED PT'S AUNT SAAD IN REGARDS TO STATUS. SHE IS REQUESTING MORE INFORMATION ON HOW TO BECOME HER GUARDIAN SO THAT SHE MAY CARE FOR HER ONCE D/C. SHE GAVE HER EMAIL IN CASE SOMEONE NEEDS TO SEND HER PAPERWORK: [email or web address].
--- NOTE | 2021-06-13 06:14 | NUR ---
SHIFT SUMMARY: NO ACUTE EVENTS OVERNIGHT. PT REMAINS TRACH TO VENT STILL ON SPONT SETTINGS AT 12/10 50%. SHE APPEARS TO BE RESTING COMFORTABLY WITH HER EYES CLOSED AND NOT MOVING ANY EXTREMITIES. HER HR HAS REMAINED TACHY THROUGHOUT THE SHIFT BTW 115-140'S WITH SBP IN THE 130'S. LUCAS CONTINUES TO DRAIN CRISTINA CLOUDY URINE TO GRAVITY. G-TUBE STILL RUNNING TF AT GOAL. NO BM THIS SHIFT. WILL UPDATE ONCOMING RN WHEN AVAILABLE.
--- NOTE | 2021-06-13 07:52 | NUR ---
REPORT RECIEVED FROM DIETETICS DIRECTOR RN. PATIENT IS ALERT AND INTERACTIVE. SHE SAID SHE NEEDED TO USE RESTROOM, WHEN ASKED IF SHE NEEDED TO HAVE A BM, SHE NODED YES. GIFFORD X4 VERY WEAK. REMAINS UNRESTRAINED. LIMA PUPILS SIZE 7 AND BRISK. SHE IS SINUS TACHY RATE 130'S, BP 166/92 EVEN WITH ORAL HOME BP MEDICATIONS STARTED YESTERDAY. REMAINS ON VENTILATOR SETTINGS AT PS PEEP10, 50% FIO2. LUNGS SOUNDS COARSE UPPER LOBES BILAT, CLEAR THROUGH OUT. GOOD COUGH AND CLEARING SECRETIONS IN TRACH, THIN, YELLOW AND MODERATE AMOUNT. RT AT BEDSIDE GIVING BREATHING TREATMENT. BOWEL TONES POSITIVE.G-TUBE IN PLACE. TUBE FEEDING AT GOAL RATE OF 30 ML/HR W/4 HR 30 ML WATER FLUSHES. LUCAS CATH IN PLACE GOOD YELLOW URINE OUTPUT. GIVING LASIX THIS MORNING. SHE DOES HAVE A RED AREA ON SACRAL AREA THAT WAS NOTED YESTERDAY DRUING BED BATH ABOUT THE SIZE OF A QUARTER. SHE HAS A SACRAL DRESSING IN PLACE AT THIS TIME. RODRIGUEZ [address] ALL PORTS FLUSHED AND WORKING WELL. DRESSING CDI.
--- NOTE | 2021-06-13 10:53 | NUR ---
1000 PATEINT BATHED WITH LINEN CHANGE AND USED SEILING LIFT TO GET PATEINT UP TO CHAIR FOR FIRST TIME TODAY. DROP CLIPPER WASHED AND BRAIDED PATIENT HAIR. PATIENT LOOKS GOOD UP IN CHAIR.
--- NOTE | 2021-06-13 17:48 | NUR ---
PATIENT HAD A GREAT DAY TODAY. SHE WAS UP IN THE CHAIR FOR 6 HOURS USING THE CEILING LIFT TO GET HER INTO/OUT OF BED. SHE LOOKED GOOD UP IN CHAIR. HER DAUGHTER CAME INTO VISIT WITH HER AND PUT SOME LOTION ON HER HANDS. PATIENT AND DAUGHTER WERE ABLE TO LAUGH A LITTLE TOGETHER DURING THE VISIT. PATIENT DID CRY LESS TODAY VS YESTERDAY. VSS. ORDERED PT/OT TO START ON HER PRIOR TO TRANSFERING OVER TO [facility].
--- NOTE | 2021-06-13 19:00 | NUR ---
ASSUME CARE NOTE: PATIENT IS LYING IN BED, TRACH TO VENT. VENT SETTINGS: SPONT 12/10 40%. SHE IS AWAKE AND ORIENTED TO SELF, GIFFORD BUT IS WEAK, FOLLOWS SIMPLE COMMANDS, AND NODS TO YES OR NO QUESTIONS. SHE IS VERY TEARFUL BUT DENIES PAIN AND DECLINES TO BE REPOSITIONED AT THIS TIME. SHE IS SINUS TACH ON TELE AND BP IN WNL. LUCAS IS DRAINING CLOUDY CRISTINA URINE TO GRAVITY. G-TUBE IN PLACE RUNNING TF TO GOAL. SKIN IS FLUSHED, WARM, AND INTACT. PICC IS SALINE LOCKED. SEE SHIFT ASSESSMENT FOR DETAILS.
--- NOTE | 2021-06-13 22:25 | NUR ---
UPDATE: FAMILY UPDATED PATIENT'S AUNT, SAAD, IN REGARDS TO STATUS. REQUESTED SHE BRING HER GLASSES AND CELL PHONE FROM HOME AND SHE STATES SHE WILL. SHE HAS NO QUESTIONS OR CONCERNS AT THIS TIME.
[2021-06-14 03:50] LABS: BASOPHILS ABSOLUTE AUTO 0.04 K/mm3 (0.00-0.23); BASOPHILS PERCENT AUTO 1 % (0-2); EOSINOPHILS ABSOLUTE AUTO 0.95 K/mm3 (0.00-0.68); EOSINOPHILS PERCENT AUTO 12 % (0-6); Hematocrit 32.9 % (33.0-51.0); Hemoglobin 10.5 g/dL (11.5-16.0); IMMATURE GRAN ABSOLUTE AUTO 0.06 K/mm3 (0.00-0.10); IMMATURE GRAN PERCENT AUTO 1 % (0-1); LYMPHOCYTES ABSOLUTE AUTO 1.82 K/mm3 (0.84-5.20); LYMPHOCYTES PERCENT AUTO 22 % (21-46); MONOCYTES ABSOLUTE AUTO 0.75 K/mm3 (0.16-1.47); MONOCYTES PERCENT AUTO 9 % (4-13); Mean Corpuscular HGB 28.9 pg (26.0-34.0); Mean Corpuscular HGB Conc 31.9 g/dL (31.5-36.5); Mean Corpuscular Volume 91 fL (80-100); Mean Platelet Volume 9.5 fL (9.1-12.4); NEUTROPHILS PERCENT AUTO 56 % (41-73); Platelet Count 292 K/mm3 (150-400); RDW Coefficient Variation 14.1 % (11.7-14.2); RDW Standard Deviation 47.3 fL (35.1-46.3); Red Blood Cell Count 3.63 M/mm3 (3.80-5.20); White Blood Cell Count 8.12 K/mm3 (4.00-11.30)
[2021-06-14 04:11] LABS: Alanine Aminotransfer (ALT/SGP 19 U/L (12-78); Albumin, Blood 2.4 g/dL (3.4-5.0); Anion Gap 6 mmol/L (6-16); Blood Urea Nitrogen 26 mg/dL (8-24); Bun/Creatinine Ratio 42.8 (12.0-20.0); CO2, Blood 29 mmol/L (21-32); Calcium, Blood 9.5 mg/dL (8.5-10.1); Chloride, Blood 105 mmol/L (98-108); Creatinine, Blood 0.61 mg/dL (0.40-1.00); Glomerular Filtration Rate >60 (60-); Glucose, Blood 143 mg/dL (70-99); Magnesium, Blood 2.1 mg/dL (1.6-2.4); Phosphorus, Blood 4.1 mg/dL (2.5-4.9); Potassium, Blood 3.7 mmol/L (3.5-5.5); Sodium, Blood 140 mmol/L (136-145)
[2021-06-14 04:17] LABS: Albumin/Globulin Ratio 0.6 (0.8-1.8); Alk Phos 54 U/L (50-136); Bilirubin, Total 0.7 mg/dL (0.1-1.0); Globulin, Blood 4.1 g/dL (2.2-4.0); Total Protein, Blood 6.5 g/dL (6.4-8.2)
[2021-06-14 04:22] LABS: Aspartate Aminotrans (AST/SGOT 9 U/L (12-37)
--- NOTE | 2021-06-14 06:37 | NUR ---
SHIFT SUMMARY: NO ACUTE OVERNIGHT EVENTS. PT IS RESTING IN BED WITH EYES CLOSED NOT MOVING ANY EXTREMITIES WITH TRACH TO VENT. SETTINGS REMAINS AT SPONT 12/10 40%. SHE WAS TEARFUL WHEN AWAKE AND EXPRESSED FRUSTERATION AT NOT BEING ABLE TO COMMUNICATE WELL. VITALS REMAINED STABLE T/O THE SHIFT. LUCAS STILL DRAINING CRISTINA CLOUDY URINE TO GRAVITY. G-TUBE CONTINUES TO RUN TF AT GOAL. PICC WILL NO LONGER DRAW BACK BLOOD SO WILL NEED TO BE EVAULATED BY PICC RN. WILL UPDATE ONCOMING RN WHEN AVAILABLE.
--- NOTE | 2021-06-14 07:53 | NUR ---
REPORT RECIEVED FROM STUDENT NURSE RN. PATIENT IS MUCH MORE ALTERT THIS MORNING. NATACHA X4, INCREASE IN MOVEMENTS IN UPPER EXTREMITIES, BUT VERY WEAK. LIMA, PUPILS SIZE 8 AND BRISK. REMAINS SINUS TACHY HR 120'S, BP 112/65, PULSES PER DOPPLER IN LOWER EXTREMITIES. GOOD CAP REFILL. LUNGS SOUNDS UPPER LOBES ARE CLEAR, LOWER LOBES ARE COARSE. THIN YELLOW, MODERATE SECRETIONS OUT OF TRACH. COPIOUS TENACIOUS CLEAR SECRETIONS AROUND TRACH. VENT SETTINGS PS 30% FIO2, 10 PEEP. BOWEL TONES POSITIVE. HAS NOT HAD A BOWEL MOVEMENT FOR MULTIPLE DAYS SO SHE WAS GIVEN A BISCODYL WA AND PRN SENNOKOT VIA PEG. PEG SITE LOOKS GOOD. TF RUNNING AT GOAL RATE AT 30 ML/HR WITH Q4 HR WATER FLUSHES 30 ML. NO RESIDUALS NOTED. LUCAS CATH IN PLACE. GOOD URINE OUTPUT, YELLOW, CLEAR. SKIN IS GENERALLY DRY. RED QUARTER SIZE RED SPOT ON SACRAL AREA. SACRAL DRESSING IN PLACE. SOME SCATTERED BRUISING. OVER ALL HER SKIN LOOKS GOOD FOR BEING IN HOSPITAL FOR SO LONG. PLAN TO GET HER UP IN CHAIR AFTER BATH SOME TIME THIS MORNING.
--- NOTE | 2021-06-14 17:09 | NUR ---
PATIENT HAD ANOTHER GOOD DAY TODAY. SHE WAS UP IN THE CHAIR AFTER HER BATH. SHE STAYED UP FOR 6 HOURS AGAIN. SHE ONLY WENT BACK TO BED BECAUSE HER BOTTOM WAS HURTING HER, EVEN THOUGH SHE WAS GIVEN MICRO SHIFTS WHILE IN THE CHAIR. HER FRIEND ROSITA ADAM CAME BY FOR A GOOD VISIT. HER AUNT SAAD BROUGHT BY HER GLASSES, CELL PHONE AND SR ACCOUNT EXECUTIVE TODAY FOR THE PATIENT. SHE IS MAKING STRIDES ON VENT SETTINGS, PS 10/5 40% FIO2, SPO2 92%. EMOTIONALLY TODAY SHE IS MORE TEARFUL AND ANXIOUS BUT IS ABLE TO LAUGH. SHE IS HAVING INCREASED ALERTNESS AND INTERACTING MUCH BETTER EACH DAY WITH STAFF.
[2021-06-15 04:22] LABS: BASOPHILS ABSOLUTE AUTO 0.04 K/mm3 (0.00-0.23); BASOPHILS PERCENT AUTO 1 % (0-2); EOSINOPHILS ABSOLUTE AUTO 1.22 K/mm3 (0.00-0.68); EOSINOPHILS PERCENT AUTO 14 % (0-6); Hematocrit 32.2 % (33.0-51.0); Hemoglobin 10.2 g/dL (11.5-16.0); IMMATURE GRAN ABSOLUTE AUTO 0.11 K/mm3 (0.00-0.10); IMMATURE GRAN PERCENT AUTO 1 % (0-1); LYMPHOCYTES ABSOLUTE AUTO 2.53 K/mm3 (0.84-5.20); LYMPHOCYTES PERCENT AUTO 30 % (21-46); MONOCYTES ABSOLUTE AUTO 0.79 K/mm3 (0.16-1.47); MONOCYTES PERCENT AUTO 9 % (4-13); Mean Corpuscular HGB 28.8 pg (26.0-34.0); Mean Corpuscular HGB Conc 31.7 g/dL (31.5-36.5); Mean Corpuscular Volume 91 fL (80-100); Mean Platelet Volume 9.3 fL (9.1-12.4); NEUTROPHILS ABSOLUTE AUTO 3.88 K/mm3 (1.96-9.15); NEUTROPHILS PERCENT AUTO 45 % (41-73); Platelet Count 297 K/mm3 (150-400); RDW Coefficient Variation 13.8 % (11.7-14.2); RDW Standard Deviation 46.4 fL (35.1-46.3); Red Blood Cell Count 3.54 M/mm3 (3.80-5.20); White Blood Cell Count 8.57 K/mm3 (4.00-11.30)
[2021-06-15 04:36] LABS: Anion Gap 3 mmol/L (6-16); Blood Urea Nitrogen 34 mg/dL (8-24); CO2, Blood 32 mmol/L (21-32); Calcium, Blood 9.6 mg/dL (8.5-10.1); Chloride, Blood 106 mmol/L (98-108); Glomerular Filtration Rate >60 (60-); Glucose, Blood 157 mg/dL (70-99); Magnesium, Blood 2.2 mg/dL (1.6-2.4); Phosphorus, Blood 4.2 mg/dL (2.5-4.9); Sodium, Blood 141 mmol/L (136-145)
--- NOTE | 2021-06-15 06:46 | NUR ---
SUMMARY PATIENT SLEEPING OFF AND ON T/O NIGHT. AWAKENS TO SLIGHT STIMULI, MOUTHING WORDS AND GESTURING TO MAKE NEEDS KNOWN. FOLLOWING DIRECTIONS WELL, ATTEMPTING TO ASSIST WITH REPOSITIONING AND ORAL CARE. TRACH REMAINS MIDLINE WITH SUTURES IN PLACE, DIFFICULT TO PLACE ANY DRESSING UNDER FLANGE DUE TO TRACH BEING TIGHT. VENT REMAINS ON SPONT 10/5 FIO2 50% SUCTIONING THICK WHITE SPUTUM. PEG TUBE TO ABD WITH TUBE FEEDING VITAL HP AT GOAL RATE OF 30 CC/HR. MOM GIVEN WITH HS MEDICATIONS FOR BOWEL CARE, NO BM DURING THE NIGHT BUT PATIENT PASSING FLATUS.
--- NOTE | 2021-06-15 16:33 | NUR ---
Spiritual care visit conducted. Patient is admits to feeling down today. Overwhelmed by weight and length of her medical condition. Communication is strained because of the air support device but patient does request prayer. I gladly provide prayer and patient voices her appreciation and states that she needed the prayer. I will continue to remain available to patient and family.
[2021-06-16 04:12] LABS: BASOPHILS ABSOLUTE AUTO 0.08 K/mm3 (0.00-0.23); BASOPHILS PERCENT AUTO 1 % (0-2); EOSINOPHILS ABSOLUTE AUTO 1.42 K/mm3 (0.00-0.68); EOSINOPHILS PERCENT AUTO 14 % (0-6); Hematocrit 35.8 % (33.0-51.0); Hemoglobin 11.3 g/dL (11.5-16.0); IMMATURE GRAN ABSOLUTE AUTO 0.19 K/mm3 (0.00-0.10); IMMATURE GRAN PERCENT AUTO 2 % (0-1); LYMPHOCYTES PERCENT AUTO 25 % (21-46); MONOCYTES ABSOLUTE AUTO 0.88 K/mm3 (0.16-1.47); MONOCYTES PERCENT AUTO 9 % (4-13); Mean Corpuscular HGB 28.5 pg (26.0-34.0); Mean Corpuscular HGB Conc 31.6 g/dL (31.5-36.5); Mean Corpuscular Volume 90 fL (80-100); Mean Platelet Volume 9.3 fL (9.1-12.4); NEUTROPHILS ABSOLUTE AUTO 4.83 K/mm3 (1.96-9.15); NEUTROPHILS PERCENT AUTO 49 % (41-73); Platelet Count 377 K/mm3 (150-400); RDW Coefficient Variation 13.9 % (11.7-14.2); RDW Standard Deviation 46.4 fL (35.1-46.3); Red Blood Cell Count 3.96 M/mm3 (3.80-5.20)
[2021-06-16 04:28] LABS: Anion Gap 3 mmol/L (6-16); Blood Urea Nitrogen 33 mg/dL (8-24); Bun/Creatinine Ratio 53.1 (12.0-20.0); CO2, Blood 34 mmol/L (21-32); Calcium, Blood 10.1 mg/dL (8.5-10.1); Chloride, Blood 103 mmol/L (98-108); Creatinine, Blood 0.62 mg/dL (0.40-1.00); Glomerular Filtration Rate >60 (60-); Glucose, Blood 178 mg/dL (70-99); Magnesium, Blood 2.4 mg/dL (1.6-2.4); Phosphorus, Blood 4.3 mg/dL (2.5-4.9); Potassium, Blood 4.2 mmol/L (3.5-5.5); Sodium, Blood 140 mmol/L (136-145)
--- NOTE | 2021-06-16 04:52 | NUR ---
DOCTOR HANLEY IN TO SEE PATIENT. SEE NEW ORDERS. PATIENT BACK TO TRACH COLLAR FIO2 60% HAVING BLOODY SECRETIONS AFTER TRACH CARE.
--- NOTE | 2021-06-16 06:47 | NUR ---
SUMMARY PATIENT WITH TRACH MIDLINE WITH SUTURES IN PLACE, BLOOD STREAKED DRAINAGE AFTER ATTEMPT TO PLACE GAUZE CUSHION BETWEEN BOTTOM OF FLANGE ON TRACH AND STOMA WOUND. WHILE SLEEPING PATIENT PLACED ON VENT SPONT 10/6 FIO2 40% AND PLACED BACK ON TRACH COLLAR 60% WHEN AWAKE. PATIENT TEARFUL OFF AND ON T/O NIGHT, VERBALIZED FEELING FRUSTRATED AND UPSET WITH TAKING SO LONG TO RECOVER. PROVIDING THERAPEUTIC CONVERSATION T/O NIGHT. BENADRYL OBTAINED FOR ITCHING AND CONTINUED RASH.
--- NOTE | 2021-06-16 10:00 | NUR ---
ASSUMED CARE OF PT, REPORT RCV'D FROM ESSENCE WILL. PT ALERT AND ORIENTED, COOPERATIVE WITH CARE, OCCASIONALLY TEARFUL. PT ON TRACH COLLAR, 60% FI02 WITH SATS UPPER 90%, FI02 DECREASED TO 30% AND CURRENTLY @26 % WITH SATS 93-94%. PT HAS STRONG COUGH WITH SMALL AMOUNT OF THICK CLEAR SPUTUM SUCTIONED. LUNG SOUNDS CLEAR, DIM BASES. PEG TUBE IN PLACE, GLUCERNA AT GOAL RATE 65 ML/HR. LUCAS PATENT AND DRAINING TO GRAVITY. WARM RASH TO BILATERAL THIGHS AND LOWER BACK, COLD WASH CLOTH AND HYDROCORTISONE CREAM APPLIED. PT COMPLAINS OF PAIN TO LOWER BACK/BUTTOCKS. REPOSITIONED AND MEDICATED PER OCT. PT UP TO CHAIR USING LIFT. SPEECH THERAPIST AT BEDSIDE FOR SPEECH/SWALLOW EVAL. PT TO BE KEPT NPO BUT OK FOR ICE CHIPS. PER DR. DE LA FUENTE AND LOAN UNDERWRITER ESSENCE GOMEZ. PT HAS BED AVAILABLE AT [facility], PLAN TO TRANFER TODAY. CALL TO DR. DAVIS REGARDING PT'S TRACH. PER DR. DAVIS, HE PLANNED TO CHANGE OUT TRACH TOMORROW AND REMOVE STITCHES. REQUESTING DR. HANLEY TO CHANGE TRACH D/T PT'S PLANNED TRANSFER TODAY. PT'S MOTHER CALLED AND PT'S AUNT CALLED, UPDATED WITH PT'S PLAN OF CARE AND IMPENDING TRANSFER. SEE SHIFT ASSESSMENT.
--- NOTE | 2021-06-16 14:32 | NUR ---
Spiritual care visit conducted. Patient immediately whispers, "I an so scared." She talks about her fears of the transport, going someplace new, of air hunger and leaving the hospital. She is very tearful and so I provide gentle staff counselor, recitation of scripture, anxiety containment and prayer. Patient responds well and shows signs reduced stress and being comforted. I will continue to remain available to patient and family.
--- NOTE | 2021-06-16 17:09 | NUR ---
SHIFT SUMMARY PT REMAINS ON TRACH COLLAR WITH 26% FI02, SATS 93%. TRACH CHANGED BY DR. HANLEY , 6.0 SHILEY, TOLERATED WELL. PT USING SPEAKING VALVE DESIRED. PT UNABLE TO BE TRANSFERRED TODAY TO [facility], PLAN FOR TRANSFER TOMORROW, PT AND FAMILY UPDATED. AUNT (SAAD) AT BEDSIDE WITH PAULINA, POWER OF OUT PATIENT THERAPIST PAPERWORK COMPLETED (COPY IN CHART). SEE PREVIOUS NOTES FROM THIS SHIFT.
--- NOTE | 2021-06-16 19:30 | NUR ---
ASSUMED CARE PATIENT LYING IN BED WITH EYES CLOSED. PATIENT HAS A TRACH W/ NO TRACH COLLAR OR SPEAKING VALVE IN PLACE. SPO2 GREATER THAN 90%. PATIENT IS TACHYCARDIC W/ HR IN 100'S-110'S. PICC LINE TO RODRIGUEZ SALINE LOCKED. LUCAS PATENT AND DRAINING TO GRAVITY. REPORT COMPLETED W/ DAYSHIFT ESSENCE.
[2021-06-17 03:33] LABS: BASOPHILS ABSOLUTE AUTO 0.06 K/mm3 (0.00-0.23); BASOPHILS PERCENT AUTO 1 % (0-2); EOSINOPHILS ABSOLUTE AUTO 1.43 K/mm3 (0.00-0.68); EOSINOPHILS PERCENT AUTO 15 % (0-6); Hematocrit 35.9 % (33.0-51.0); Hemoglobin 11.2 g/dL (11.5-16.0); IMMATURE GRAN ABSOLUTE AUTO 0.18 K/mm3 (0.00-0.10); IMMATURE GRAN PERCENT AUTO 2 % (0-1); LYMPHOCYTES ABSOLUTE AUTO 2.34 K/mm3 (0.84-5.20); LYMPHOCYTES PERCENT AUTO 25 % (21-46); MONOCYTES ABSOLUTE AUTO 0.89 K/mm3 (0.16-1.47); MONOCYTES PERCENT AUTO 10 % (4-13); Mean Corpuscular HGB 28.5 pg (26.0-34.0); Mean Corpuscular HGB Conc 31.2 g/dL (31.5-36.5); Mean Corpuscular Volume 91 fL (80-100); Mean Platelet Volume 9.3 fL (9.1-12.4); NEUTROPHILS ABSOLUTE AUTO 4.37 K/mm3 (1.96-9.15); NEUTROPHILS PERCENT AUTO 47 % (41-73); Platelet Count 393 K/mm3 (150-400); RDW Coefficient Variation 13.9 % (11.7-14.2); RDW Standard Deviation 46.9 fL (35.1-46.3); Red Blood Cell Count 3.93 M/mm3 (3.80-5.20); White Blood Cell Count 9.27 K/mm3 (4.00-11.30)
[2021-06-17 03:59] LABS: Alanine Aminotransfer (ALT/SGP 29 U/L (12-78); Albumin, Blood 2.7 g/dL (3.4-5.0); Albumin/Globulin Ratio 0.6 (0.8-1.8); Alk Phos 63 U/L (50-136); Anion Gap 2 mmol/L (6-16); Aspartate Aminotrans (AST/SGOT 13 U/L (12-37); Bilirubin, Total 0.5 mg/dL (0.1-1.0); Blood Urea Nitrogen 36 mg/dL (8-24); Bun/Creatinine Ratio 53.3 (12.0-20.0); CO2, Blood 34 mmol/L (21-32); Calcium, Blood 9.8 mg/dL (8.5-10.1); Chloride, Blood 105 mmol/L (98-108); Creatinine, Blood 0.68 mg/dL (0.40-1.00); Globulin, Blood 4.2 g/dL (2.2-4.0); Glomerular Filtration Rate >60 (60-); Glucose, Blood 156 mg/dL (70-99); Magnesium, Blood 2.4 mg/dL (1.6-2.4); Phosphorus, Blood 4.9 mg/dL (2.5-4.9); Potassium, Blood 4.6 mmol/L (3.5-5.5); Sodium, Blood 141 mmol/L (136-145); Total Protein, Blood 6.9 g/dL (6.4-8.2)
--- NOTE | 2021-06-17 06:35 | NUR ---
SHIFT SUMMARY PATIENT REMAINED ON TRACH COLLAR THROUGHOUT SHIFT W/ INCREASE OF FIO2 FROM 40% TO 60% AT THE BEGINNING OF THE SHIFT; FIO2 BACK DOWN TO 40% OF THIS MORNING. PATIENT SLEPT THROUGH MOST OF SHIFT WITH PERIODIC USE OF CALL LIGHT. TRACH CARE COMPLETED AND PATIENT TOELRATED WELL W/ LOWER REPORTED PAIN THAN PREVIOUSLY, BUT PATIENT WAS TEARFUL AND TACHYPNEIC DURING CARE. PATIENT REPORTED BEING SCARED THAT IT WOULD HURT. GLUCERNA TF REMAINED AT GR OF 65ML/HR W/ NO RESIDUALS. PATIENT HAD ONE LARGE BOWEL MOVEMENT OF LIQUID/LIGHT BROWN DIARRHEA. PATIENT IS PLANNED TO TRANSFER TO [facility] TODAY, BUT IT IS NOT SCHEDULED YET.
--- NOTE | 2021-06-17 14:02 | NUR ---
G-TUBE WHILE DOING BED BATH ONE OF THE BUTTONS WITH A SUTURE CAME OFF OF THE G-TUBE. CALLED DR. BARTH AND NOTIFIED HIM. NO NEW ORDERS. CLEANED AROUND SITE AND SECURED.
--- NOTE | 2021-06-17 15:49 | NUR ---
PT A/O X4. TRACH TO TRACH COLLAR. PT ABLE TO TALK WITH SPEAKING VALVE. PT IS EMOTIONAL AT TIMES. OFFERED REASSURANCE NEEDED. STRONG COUGH WITH MOD AMT OF FAN SPUTUM. TRACH HAS OPEN AREA AT BOTTOM WHERE SKIN WAS CUT AWAY DURING INSERTION. PLACED EXTRA SPLIT GAUZE UNDER TRACH FOR SUPPORT. PT MOVED TO PCU 14, REPORT GIVEN TO BAILEY LOWRY WHO WILL ASSUME CARE.
--- NOTE | 2021-06-17 16:01 | NUR ---
TRANSFER PATIENT TO PCU 14 FROM ICU. REPORT RECIEVED FROM ICU NURSE. THIS RN AGREES WITH PERVIOUS RN'S SHIFT ASSESSMENT. PATIENT ARRIVED ON TRACH COLLAR AT 28% WITH OXYGEN SATURATION ABOVE 90%. PATIENT SLIGHTLY ANXIOUS AND TEARFUL BUT IS ABLE TO BE TALKED DOWN. PEG TUBE IN PLACE AND SECURE. LUCAS IN PLACE DRAINING DARK YELLOW URINE. ORIENTED TO PCU ROOM AND IS ABLE TO MAKE NEEDS KNOWN. WILL CONTINUE TO MONITOR.
--- NOTE | 2021-06-17 18:40 | NUR ---
SHIFT SUMMARY NO SIGNIFICANT CHANGES TO PATIENT SINCE TRANSFER NOTE. PATIENT COMPLAINED OF ITCHING, MEDICATED WITH BENADRYL PER EMAR. PICC LINE DRESSING CHANGED. ICE CHIPS AT BEDSIDE. PATIENT ABLE TO USE CALL LIGHT AND MAKE NEEDS KNOWN. WILL REPORT TO SEAFOOD PREPARER.
--- NOTE | 2021-06-18 05:22 | NUR ---
SATELLITE INSTALLER SUMMARY PT IS AXO X4 THIS SHIFT. PT O2 SATS >90% ON TRACH COLLAR THIS SHIFT W DESATS WHILE SLEEPING REQUIRING INCREASED FIO2 FROM 30% TO 40%. BP WNL AND STABLE THIS SHIFT. TELE SHOWING SR/ST 90-105 THIS SHIFT. PT AFEBRILE THIS SHIFT. TUBE FEEDINGS RUNNING AT GOAL RATE OF 65ML/HR THIS SHIFT. LUCAS PATENT AND DRAINING DARK YELLOW URINE THIS SHIFT. PT REPORTED THAT SHE COULD SMELL THE COFFEE THAT WAS MADE IN THE PANTRY WHICH IS THE FIRST TIME SHE HAS BEEN ABLE TO SMELL SINCE GETTING SICK, WILL REPORT TO ONCOMING RN.
--- NOTE | 2021-06-18 18:01 | NUR ---
SHIFT SUMMARY; ASSUMED CARE AT 0700, REPORT FROM ILIA. Michelle/Michelle/MARTIN DURING SHIFT. TRACH COLLAR 40% WHEN ASSUMING CARE. WORKED WITH OT TODAY AND SAT AT SIDE OF BED. TRACH CAPPED IN AFTERNOON AND PLACED ON 4L NC BY DR. HANLEY. INSULIN COVERAGE PER EMAR. CLEARED FOR SIPS OF WATER TODAY BY SPEECH. LUCAS IN PLACE DRAINING YELLOW URINE TO GRAVITY BAG. MEDS VIA GTUBE. FEEDING INFUSING. WILL CONTINUE TO MONITOR AND TREAT UNTIL CHANGE OF SHIFT.
[2021-06-19 04:52] LABS: BASOPHILS ABSOLUTE AUTO 0.11 K/mm3 (0.00-0.23); BASOPHILS PERCENT AUTO 1 % (0-2); EOSINOPHILS ABSOLUTE AUTO 0.65 K/mm3 (0.00-0.68); EOSINOPHILS PERCENT AUTO 6 % (0-6); Hematocrit 37.1 % (33.0-51.0); IMMATURE GRAN ABSOLUTE AUTO 0.37 K/mm3 (0.00-0.10); IMMATURE GRAN PERCENT AUTO 3 % (0-1); LYMPHOCYTES ABSOLUTE AUTO 2.75 K/mm3 (0.84-5.20); LYMPHOCYTES PERCENT AUTO 25 % (21-46); MONOCYTES ABSOLUTE AUTO 1.07 K/mm3 (0.16-1.47); MONOCYTES PERCENT AUTO 10 % (4-13); Mean Corpuscular HGB 28.7 pg (26.0-34.0); Mean Corpuscular HGB Conc 32.3 g/dL (31.5-36.5); Mean Corpuscular Volume 89 fL (80-100); Mean Platelet Volume 9.6 fL (9.1-12.4); NEUTROPHILS PERCENT AUTO 55 % (41-73); Platelet Count 412 K/mm3 (150-400); RDW Coefficient Variation 13.9 % (11.7-14.2); RDW Standard Deviation 44.7 fL (35.1-46.3); Red Blood Cell Count 4.18 M/mm3 (3.80-5.20); White Blood Cell Count 10.95 K/mm3 (4.00-11.30)
[2021-06-19 05:11] LABS: Alanine Aminotransfer (ALT/SGP 37 U/L (12-78); Albumin/Globulin Ratio 0.8 (0.8-1.8); Alk Phos 68 U/L (50-136); Anion Gap 5 mmol/L (6-16); Aspartate Aminotrans (AST/SGOT 17 U/L (12-37); Bilirubin, Direct 0.2 mg/dL (0.0-0.3); Bilirubin, Indirect 0.4 mg/dL (0.1-0.7); Bilirubin, Total 0.6 mg/dL (0.1-1.0); Blood Urea Nitrogen 36 mg/dL (8-24); Bun/Creatinine Ratio 41.4 (12.0-20.0); CO2, Blood 32 mmol/L (21-32); Calcium, Blood 9.8 mg/dL (8.5-10.1); Chloride, Blood 98 mmol/L (98-108); Creatinine, Blood 0.87 mg/dL (0.40-1.00); Glomerular Filtration Rate >60 (60-); Glucose, Blood 177 mg/dL (70-99); Magnesium, Blood 2.4 mg/dL (1.6-2.4); Phosphorus, Blood 5.3 mg/dL (2.5-4.9); Potassium, Blood 4.3 mmol/L (3.5-5.5); Sodium, Blood 135 mmol/L (136-145)
--- NOTE | 2021-06-19 11:35 | NUR ---
ASSUMPTION OF CARE Received report from off going RN. Pt is currently up in her chair and working with therapy. She has made attempts to stand up and walk and appears to be making good progress. She is able to make her needs known and calls for help when needed.
--- NOTE | 2021-06-19 11:40 | NUR ---
REPORT GIVEN TO DAR LOWRY.
--- NOTE | 2021-06-19 16:39 | NUR ---
SHIFT SUMMARY Pt has been resting in bed since this afternoon. Her ortiz is patent and her tube feeding is running as ordered. Her family has been updated. The pt is cooperative with her care and eager to regain her strength. She has her call light in reach and is able to make her needs known. We are still awaiting a bed at [facility]
--- NOTE | 2021-06-20 02:45 | NUR ---
SHIFT SUMMARY: PT ALERT AND ORIENTED, LESS ANXIOUS AND TOLERATING PASSEY-PUSHPA VALVE WELL. O2 SATS MID 90'S BUT DOES DESAT OCCASIOANLLY DUE TO SLEEP APNEA. TELE SHOWS SR/ST, ABLE TO VERBALIZE NEEDS. PEG TUBE PATENT AND INFUSING ORDERED TUBE FEED AT PRESCRIBED RATE, TOLERATING WELL. FOLY PATENT AND DRAINING YELLOW URINE. NO C/O PAIN BUT DOES REQUIRE ASSIST WITH ALL ACTIVITIES DUE TO GENERALIZED WEAKENSS AND DECONDITIONING. BED LOCKED AND LOW, CALL LIGHT IN REACH. PICC LINE TO RIGHT ARM FLUSHED AND CAPPED. ESSENCE WHITE
[2021-06-20 05:14] LABS: BASOPHILS ABSOLUTE AUTO 0.11 K/mm3 (0.00-0.23); BASOPHILS PERCENT AUTO 1 % (0-2); EOSINOPHILS PERCENT AUTO 3 % (0-6); Hematocrit 36.3 % (33.0-51.0); Hemoglobin 11.7 g/dL (11.5-16.0); IMMATURE GRAN ABSOLUTE AUTO 0.26 K/mm3 (0.00-0.10); IMMATURE GRAN PERCENT AUTO 3 % (0-1); LYMPHOCYTES ABSOLUTE AUTO 2.69 K/mm3 (0.84-5.20); LYMPHOCYTES PERCENT AUTO 27 % (21-46); MONOCYTES ABSOLUTE AUTO 1.02 K/mm3 (0.16-1.47); MONOCYTES PERCENT AUTO 10 % (4-13); Mean Corpuscular HGB 28.3 pg (26.0-34.0); Mean Corpuscular HGB Conc 32.2 g/dL (31.5-36.5); Mean Corpuscular Volume 88 fL (80-100); Mean Platelet Volume 9.8 fL (9.1-12.4); NEUTROPHILS ABSOLUTE AUTO 5.43 K/mm3 (1.96-9.15); NEUTROPHILS PERCENT AUTO 55 % (41-73); Platelet Count 389 K/mm3 (150-400); RDW Coefficient Variation 13.8 % (11.7-14.2); RDW Standard Deviation 44.3 fL (35.1-46.3); Red Blood Cell Count 4.13 M/mm3 (3.80-5.20); White Blood Cell Count 9.81 K/mm3 (4.00-11.30)
[2021-06-20 05:41] LABS: Albumin, Blood 2.9 g/dL (3.4-5.0); Anion Gap 5 mmol/L (6-16); Blood Urea Nitrogen 36 mg/dL (8-24); Bun/Creatinine Ratio 41.2 (12.0-20.0); CO2, Blood 30 mmol/L (21-32); Calcium, Blood 9.5 mg/dL (8.5-10.1); Chloride, Blood 98 mmol/L (98-108); Creatinine, Blood 0.87 mg/dL (0.40-1.00); Glomerular Filtration Rate >60 (60-); Glucose, Blood 182 mg/dL (70-99); Magnesium, Blood 2.4 mg/dL (1.6-2.4); Phosphorus, Blood 5.3 mg/dL (2.5-4.9); Potassium, Blood 4.3 mmol/L (3.5-5.5); Sodium, Blood 133 mmol/L (136-145)
--- NOTE | 2021-06-20 13:45 | NUR ---
UPDATE PT CALLS REQUESTING TO BE SUCTIONED. THIS RN AND RT ATTEMPT TO SUCTION THROUGH TRACH, BUT NO PRODUCTION NOTED. PT REPORTS HAVING DIFFICULTY BREATHING. O2 SATURATION >95% ON 4L NC. INNER CANNULA REMOVED AND CLEAN INNER CANNULA PLACED. PT REPORTS HAVING "A LOT OF ANXIETY". PT MEDICATED PER EMAR. AFTER MEDICATION ADMINISTRATION, BUT STATES SHE FEELS MORE RELAXED AND CAN BREATHE EASIER.
--- NOTE | 2021-06-20 18:28 | NUR ---
SHIFT SUMMARY PT HAS BEEN RESTING IN BED TODAY. PT HAD A FEW EPISODES OF TEARFUL INTENSE EMOTION TODAY EXPRESSING SOME FRUSTRATION OVER THE DISEASE PROCESS AND REHABILITATION PROGRESS. THERAPEUTIC COMMUNICATION, MEDICATION PER EMAR, AND A FAMILY VISITOR HELPED TO ALTER THEIR PERSPECTIVE AND OUTLOOK. PT STATED HOPE AND MOTIVATION FOR RECOVERY AND REHABILITATION. ALL VITAL SIGNS HAVE BEEN STABLE, NO ACUTE CHANGES.
--- NOTE | 2021-06-21 03:44 | NUR ---
SHIFT SUMMARY: PT WITH DEPRESSED AFFECT, C/O FATIGUE, DENIES PAIN. O2 VIA TRACH COLLAR, PEG TUBE PATENT AND INFUSING GLUCERNA PER ORDER, TELE SHOWS SR OR ST LOW 100'S. LUCAS PATENT AND DRAINING CLEAR YELLOW URINE, ALLEVYN TO COCCYX FOR SKING PROTECTION AND TO LEFT BUTTOCK AREA. +BM THIS SHIFT. HOB >30*, PT ABLE TO VERBALIZE OR INDICATE NEEDS OF PASSY-PUSHPA VALVE NOT ON TRACH. SPUTUM SPEC COLLECTED AND TO LAB. AFEBRILE, VSS. BED LOCKED AND LOW, CALL SANTOS IN REACH. ESSENCE WHITE
[2021-06-21 04:19] LABS: BASOPHILS PERCENT AUTO 1 % (0-2); EOSINOPHILS PERCENT AUTO 2 % (0-6); Hematocrit 36.2 % (33.0-51.0); Hemoglobin 11.8 g/dL (11.5-16.0); IMMATURE GRAN ABSOLUTE AUTO 0.23 K/mm3 (0.00-0.10); IMMATURE GRAN PERCENT AUTO 3 % (0-1); LYMPHOCYTES ABSOLUTE AUTO 2.74 K/mm3 (0.84-5.20); LYMPHOCYTES PERCENT AUTO 29 % (21-46); MONOCYTES ABSOLUTE AUTO 1.07 K/mm3 (0.16-1.47); MONOCYTES PERCENT AUTO 11 % (4-13); Mean Corpuscular HGB 28.6 pg (26.0-34.0); Mean Corpuscular HGB Conc 32.6 g/dL (31.5-36.5); Mean Corpuscular Volume 88 fL (80-100); Mean Platelet Volume 9.8 fL (9.1-12.4); NEUTROPHILS ABSOLUTE AUTO 5.04 K/mm3 (1.96-9.15); NEUTROPHILS PERCENT AUTO 54 % (41-73); Platelet Count 360 K/mm3 (150-400); RDW Coefficient Variation 14.3 % (11.7-14.2); RDW Standard Deviation 45.1 fL (35.1-46.3); Red Blood Cell Count 4.12 M/mm3 (3.80-5.20); White Blood Cell Count 9.38 K/mm3 (4.00-11.30)
[2021-06-21 04:30] LABS: Anion Gap 3 mmol/L (6-16); Blood Urea Nitrogen 34 mg/dL (8-24); Bun/Creatinine Ratio 34.7 (12.0-20.0); CO2, Blood 32 mmol/L (21-32); Calcium, Blood 9.4 mg/dL (8.5-10.1); Chloride, Blood 101 mmol/L (98-108); Creatinine, Blood 0.98 mg/dL (0.40-1.00); Glomerular Filtration Rate >60 (60-); Glucose, Blood 171 mg/dL (70-99); Potassium, Blood 4.4 mmol/L (3.5-5.5); Sodium, Blood 136 mmol/L (136-145)
--- NOTE | 2021-06-21 18:53 | NUR ---
SHIFT SUMMARY PT HAS C/O ITCHINESS TO BILATERAL FEET AND LOWER LEGS, TOPICAL APPLIED PER EMAR. PT HAS HAD NO OTHER C/O. COMFORT MEASURES HAVE BEEN PROVIDED NEEDED. PT NEEDS REINFORCEMENT OF TEACHING ON PRESENT ILLNESS, TREATMENT, AND PLAN. ALL VITAL SIGNS HAVE BEEN STABLE. PT TOLERATED CAPPED TRACH WELL.
--- NOTE | 2021-06-22 00:39 | NUR ---
PATIENT IS SOMNOLENT THIS EVENING, TIRED AFTER FAMILY VISIT AWAKES TO VERBAL STIMULI, TRACH IS INTACT DRESSING IS DRY, TRACHMIST 26% WITH 6L O2 BLEED SATURATIONS 91-92%, RR 17-19. TUBE FEED IS RUNNING AT 65ML/HR NO NOTED RESIDUAL WHEN GIVING MEDICATIONS, PEG SITE IS CLEAN DRY DRESSING INTACT AND SKIN IS PINK AT SITE TUBE PLACEMENT AT 7CM. TURNING AND REPOSITION PROVIDED AND WILL CONTINUE TO MONITOR.
[2021-06-22 03:48] LABS: BASOPHILS PERCENT AUTO 1 % (0-2); EOSINOPHILS ABSOLUTE AUTO 0.13 K/mm3 (0.00-0.68); EOSINOPHILS PERCENT AUTO 1 % (0-6); Hematocrit 35.3 % (33.0-51.0); Hemoglobin 11.5 g/dL (11.5-16.0); IMMATURE GRAN ABSOLUTE AUTO 0.17 K/mm3 (0.00-0.10); IMMATURE GRAN PERCENT AUTO 2 % (0-1); LYMPHOCYTES ABSOLUTE AUTO 3.09 K/mm3 (0.84-5.20); LYMPHOCYTES PERCENT AUTO 31 % (21-46); MONOCYTES ABSOLUTE AUTO 0.95 K/mm3 (0.16-1.47); MONOCYTES PERCENT AUTO 10 % (4-13); Mean Corpuscular HGB 28.7 pg (26.0-34.0); Mean Corpuscular HGB Conc 32.6 g/dL (31.5-36.5); Mean Corpuscular Volume 88 fL (80-100); NEUTROPHILS ABSOLUTE AUTO 5.42 K/mm3 (1.96-9.15); NEUTROPHILS PERCENT AUTO 55 % (41-73); NRBC ABSOLUTE 0.02 K/mm3 (0.00-0.02); NRBC Auto 0.2 /100 WBC (0.0-0.2); Platelet Count 335 K/mm3 (150-400); RDW Coefficient Variation 14.2 % (11.7-14.2); RDW Standard Deviation 44.6 fL (35.1-46.3); Red Blood Cell Count 4.01 M/mm3 (3.80-5.20); White Blood Cell Count 9.86 K/mm3 (4.00-11.30)
[2021-06-22 04:02] LABS: Anion Gap 8 mmol/L (6-16); Blood Urea Nitrogen 33 mg/dL (8-24); Bun/Creatinine Ratio 34.8 (12.0-20.0); CO2, Blood 28 mmol/L (21-32); Calcium, Blood 9.2 mg/dL (8.5-10.1); Chloride, Blood 100 mmol/L (98-108); Creatinine, Blood 0.95 mg/dL (0.40-1.00); Glomerular Filtration Rate >60 (60-); Glucose, Blood 162 mg/dL (70-99); Magnesium, Blood 2.6 mg/dL (1.6-2.4); Phosphorus, Blood 5.5 mg/dL (2.5-4.9); Potassium, Blood 4.3 mmol/L (3.5-5.5); Sodium, Blood 136 mmol/L (136-145)
--- NOTE | 2021-06-22 18:10 | NUR ---
SHIFT SUMMARY THIS RN ASSUMED CARE AT 0700 FROM HANNAH LOWRY. PATIENT IS A/OX4. PATIENT HAS BEEN EMOTIONAL THROUGHOUT THE DAY. PATIENT THIS AM WAS CRYING AND THIS RN SAT AT BEDSIDE AND PROVIDED THERAPETUIC COMMUNICATION AND ACTIVE LISTENING. PATIENT WAS EMOTIONAL DUE TO THE PLAN BEING CHANGE AND NOT FEELING "NORMAL". PATIENT SPIRITS LIFTED WHEN HER BEST FRIEND CAME TO VISIT HER AND HAS BEEN MUCH MORE HAPPIER SINCE THEN. PATIENT TUBE FEEDING CHANGE TO MATCH A REGULAR DIET, SEE THE ORDER. VSS. SPO2 >90% ON 4L NC. NO TELE. MED STATUS. PATIENT REPORTS TENDERNESS TO BOTTOM, BUT WHEN REPOSITIONING WOULD GO BACK TO HER BOTTOM. CALL LIGHT WITHIN REACH. WILL CONTINUE TO MONITOR AND PROVIDE CARE UNTIL HAND OFF WITH NEXT SHIFT.
--- NOTE | 2021-06-23 05:16 | NUR ---
PATIENT ALERT AND ORIENTATED, CALL LIGHT WITHIN REACH, 4 X 4 CHANGED IN BEGINNING OF SHIFT TRACH OOZING FAN THICK SECRETIONS, PEG TUBE AT 7CM, PATIENT REFUSED BOLUS FEEDING WOULD LIKE IT ONLY WHEN AWAKE, C/O OF ITCHING ON LEGS AND MID BACK APPLIED BENEDRYL CREAM AND GAVE BENEDRYL VIA PEG TUBE, PATIENT BECAME TEARFUL AT TIMES, AROUND 2200 PATIENT FELL ASLEEP AND HAS BEEN RESTING ALL NIGHT.
--- NOTE | 2021-06-23 10:21 | NUR ---
CARE ASSUMPTION THIS RN ASSUMED OF PATIENT AT 0700 FROM HANNAH Huynh RN. PATIENT IS A/OX4. RESPIRATORY THERAPY CAME BACK AND CAPPED THR TRACH. PATIENT IS ON RA. SPO2 >90% ON RA. MED NO TELE. VSS. PATIENT STATED THAT SHE FEELS DIZZY AND WEAK. PATIENT DID WORK WITH THERAPY THIS MORNING. THIS RN CHECKED THE PATIEINT CBG AND IT WAS NOT LOW. WILL CONTINUE TO MONITOR AND PROVIDE CARE. CALL LIGHT WITHIN REACH.
--- NOTE | 2021-06-23 14:15 | NUR ---
Spiritual care visit conducted. Patient immediately tells me about the anxiety she feels about leaving the security of the hospital (and our "amazing" staff) and her entire family/friend support system to go to a rehabilitation facility in the [place] area. Patient talks at length about the hallucinations she saw while coming out of the virus and the medications that were required to keep her sedated and paralyzed while intubated. She also talked about the fear she had as she awoke and was too weak to push the call button and unable to speak. Patient shares about her 17 y/o daughter and how she is coping and about her horace in God that has grown exponentially as she has been living in this painfully slow recovery process. I normalize patient's experience, highlight her courage and ability to overcome and provide gentle encouragement, anxiety containment and prayer. Patient responds well and shows signs of reduced stress. I will continue to remain available to patient and family.
[2021-06-23] MEDS ORDERED: BISA10S PR (15:27)
[2021-06-23] MEDS ORDERED: BUPR150ER PT (15:28)
[2021-06-23] MEDS ORDERED: DIPHENHYDR12.5 MG/5 PT (15:29)
[2021-06-23] MEDS ORDERED: DOCU100 (15:29)
[2021-06-23] MEDS ORDERED: FAMO20 PT (15:30)
[2021-06-23] MEDS ORDERED: DOCU LIQUI50 MG/5 ML PT (15:30)
[2021-06-23] MEDS ORDERED: FURO40 PO (15:31)
[2021-06-23] MEDS ORDERED: HYDROCORTISONE30 GM TOP (15:34)
[2021-06-23] MEDS ORDERED: INSULANPEN SC (15:35)
[2021-06-23] MEDS ORDERED: HUMULIN R100 UNIT/2 SC (15:37)
[2021-06-23] MEDS ORDERED: IPRAT-ALBUT 0.5-3 ML INH (15:38)
[2021-06-23] MEDS ORDERED: VISBIOME 112.51 EACH PO (15:39)
[2021-06-23] MEDS ORDERED: POTA20LUD PT (15:50)
[2021-06-23] MEDS ORDERED: Prednisone10 MG PT (15:51)
[2021-06-23] MEDS ORDERED: SENN187 PT (15:54)
[2021-06-23] MEDS ORDERED: VENL37.5ER PO (15:54)
[2021-06-23] MEDS ORDERED: LACRI-LUBE BOTHEYES (16:03)
--- NOTE | 2021-06-23 17:54 | NUR ---
SHIFT SUMMARY PATIENT IS A/OX4. PATIENT HAS MIXED FEELINGS WITH GOING TO [place] TOMORROW. PATIENT IS SAD TO BE FURTHER AWAY FROM FAMILY, BUT IS EXCITED TO BE MOVING INTO THE RIGHT DIRECTION AND BUILDING HER STRENGTH BACK. THIS RN ACTIVELY LISTENED AND PROVIDED THERAPEUTIC COMMUNICATION AND ENCOURAGED TO FOCUS ON HER STRENGTHS. PATIENT HAS FELT DIZZY THROUGHOUT THE DAY AND JUST GENERAL UNWELL FEELING. PATIENT RECEIVED HER LATEST BOLUS FEEDING AT 1600, AND NEXT ON IS AT 2000, PER ORDERS. VSS. PATIENT HAS BEEN ON RA WITH TRACH CAPPED. LUCAS IN PLACE DRAINING WITH GRAVITY. CALL LIGHT WITHIN REACH AND BED IN LOWEST POSITION. WILL CONTINUE TO MONITOR AND PROVIDE CARE UNTIL HAND OFF WITH NEXT SHIFT.
--- NOTE | 2021-06-24 06:14 | NUR ---
NO CHANGES OVERNIGHT, PATIENT WAS RESTING COMFORTABLY, VITALS STABLE AND BOLUS FEEDINGS GIVEN ON SCHEDULE 0000, 0600 PATIENT TOLERATED WELL.
--- NOTE | 2021-06-24 14:50 | NUR ---
PT TRANSFER VIA EMS TO ANOTHER FACILITY. PT WAS RETRIEVED BY EMS PERSONNEL AND TRANSPORTED VIA EMS CART FROM ROOM. ALL PT BELONGINGS WERE IN THE POSESSION OF PT AT TIME OF TRANSFER. PT TOLERATED THE LIFT TRANSFER FROM BED TO CART WELL. PT EXPRESSED NO FURTHER C/O OR QUESTIONS.
--- NOTE | 2021-06-24 17:49 | NUR ---
REPORT GIVEN CALLED REPORT TO RECEIVING RN AT [facility]. ALL QUESTIONS WERE ANSWERED SATISFACTORILY. RECEIVING RN AWARE OF MOST RECENT VITAL SIGNS, HISTORY OF PRESENT ILLNESS WITH SIGNIFICANT DATES, PT'S CURRENT MENTAL STATUS, PHYSICAL STATUS, RESPIRATORY STATUS, AND CURRENT MEDICATION REGIMEN.
== END 2021-06-24 14:14 | disposition home or self-care (01) | DRG 4 ==
LOC: ER 16:40 → PCU 05-20 00:24 → ICUW 05-20 00:24 → PCU 05-20 00:58 → ICUW 05-21 10:22 → PCU 06-17 15:40
PROVIDERS: Family Medicine; Internal Medicine; Internal Medicine Critical Care Medicine; Otolaryngology; Physician Assistant; Student in an Organized Health Care Education/Training Program; ADMIT Internal Medicine
PROC: 3E0333Z Introduction of Anti-inflammatory into Peripheral Vein, Percutaneous Approach (ICD-10-PCS; 2021-05-20)
PROC: XW033E5 Introduction of Remdesivir Anti-infective into Peripheral Vein, Percutaneous Approach, New Technology Group 5 (ICD-10-PCS; 2021-05-20)
PROC: 8E0ZXY6 Isolation (ICD-10-PCS; 2021-05-20)
PROC: 5A09457 Assistance with Respiratory Ventilation, 24-96 Consecutive Hours, Continuous Positive Airway Pressure (ICD-10-PCS; 2021-05-20)
PROC: 02HV33Z Insertion of Infusion Device into Superior Vena Cava, Percutaneous Approach (ICD-10-PCS; 2021-05-21)
PROC: 5A1955Z Respiratory Ventilation, Greater than 96 Consecutive Hours (ICD-10-PCS; 2021-05-22)
PROC: 0BH18EZ Insertion of Endotracheal Airway into Trachea, Via Natural or Artificial Opening Endoscopic (ICD-10-PCS; 2021-05-22)
PROC: 0B110F4 Bypass Trachea to Cutaneous with Tracheostomy Device, Open Approach (ICD-10-PCS; principal; 2021-06-09 07:30)
PROC: 0DH63UZ Insertion of Feeding Device into Stomach, Percutaneous Approach (ICD-10-PCS; 2021-06-11)
DX: J12.82 Pneumonia due to coronavirus disease 2019 (principal); J96.01 Acute respiratory failure with hypoxia; J15.1 Pneumonia due to Pseudomonas; Z68.42 Body mass index [BMI] 45.0-49.9, adult; N39.0 Urinary tract infection, site not specified; E87.1 Hypo-osmolality and hyponatremia; I10 Essential (primary) hypertension; E66.01 Morbid (severe) obesity due to excess calories; Z79.899 Other long term (current) drug therapy; Z98.890 Other specified postprocedural states; E11.65 Type 2 diabetes mellitus with hyperglycemia; T38.0X5A Adverse effect of glucocorticoids and synthetic analogues, initial encounter; Z88.8 Allergy status to other drugs, medicaments and biological substances; Z87.891 Personal history of nicotine dependence; E86.0 Dehydration; E11.69 Type 2 diabetes mellitus with other specified complication; B96.20 Unspecified Escherichia coli [E. coli] as the cause of diseases classified elsewhere; E87.6 Hypokalemia; D63.8 Anemia in other chronic diseases classified elsewhere
CPT/HCPCS: 31502; 31720; 36415; 36569; 36600; 49440; 51702; 71045; 74230; 80048; 80053; 80069; 81001; 81025; 82248; 82728; 82803; 82947; 83540; 83550; 83605; 83735; 83880; 84100; 84145; 84443; 84478; 84484; 85025; 85651; 86140; 87040; 87070; 87077; 87086; 87186; 87205; 92507; 92526; 92597-GN; 92610; 92611; 93005; 93010; 94003; 94640; 94660; 94760; 94762; 96365; 96366; 96375; 97110; 97163; 97167; 97530; 97535; 99285-25; A9270; C1751; C1769; C1887; C1894; C9113; J0153; J0360; J0456; J0696; J0713; J1100; J1170; J1650; J1720; J1815; J1885; J1940; J2060; J2250; J2405; J2704; J2920; J2930; J3010; J3480; J7030; J7040; J7042; J7050; J7060; J7512; Q9967

== ENCOUNTER → 2023-01-24 | Outpatient (CLI) | payer OTHER ==
[~2023-01-24] MED LIST changes: +AMLO10 PT; +BISA10S PR; +BUPR150ER PT; +DIPHENHYDR12.5 MG/5 PT; +DOCU LIQUI50 MG/5 ML PT; +DOCU100; +FAMO20 PT; +FURO40 PO; +HUMULIN R100 UNIT/2 SC; +HYDROCORTISONE30 GM TOP; +INSULANPEN SC; +IPRAT-ALBUT 0.5-3 ML INH; +LACRI-LUBE BOTHEYES; +LOSARTAN POTAS100 M1 PT; +POTA20LUD PT; +Prednisone10 MG PT; +SENN187 PT; +VENL37.5ER PO; +VISBIOME 112.51 EACH PO
== END | disposition home or self-care (01) ==
LOC: LAB 17:51 → LAB SHORT 17:51
DX: N39.0 Urinary tract infection, site not specified (principal)
CPT/HCPCS: 87077; 87086; 87186

== ENCOUNTER → 2023-10-06 | Outpatient (CLI) | payer OTHER | END | disposition home or self-care (01) | LOC: LAB SHORT 09:27 → LAB 09:27 | DX: N39.0 Urinary tract infection, site not specified (principal) | CPT/HCPCS: 87077; 87086; 87186 ==